=== PATIENT | female | born 1960 | race Caucasian/White ===

== ENCOUNTER → 2017-10-03 08:11 | Outpatient (CLI) | payer OTHER, SELFPAY ==
--- NOTE | 2017-10-03 | DI.MG.S_ITS ---
BILATERAL DIGITAL SCREENING MAMMOGRAM 3D/2D WITH CAD: 10/03/2017 CLINICAL: Routine screening. Comparison is made to exams dated: 06/26/2016 mammogram, 05/26/2015 mammogram, and 04/06/2013 mammogram - [facility]. There are scattered fibroglandular elements in both breasts. Current study was also evaluated with a Computer Aided Detection (CAD) system. No significant masses, calcifications, or other findings are seen in either breast. There has been no significant interval change. IMPRESSION: NEGATIVE There is no mammographic evidence of malignancy. A 1 year screening mammogram is recommended. This exam was interpreted at Station ID: [id number]. NOTE: For mammograms, a report in lay terms will be sent to the patient. Approximately 15% of breast malignancies will not be visualized mammographically. In the management of a palpable breast mass, a negative mammogram must not discourage biopsy of a clinically suspicious lesion. Electronically Signed By: Juan Luis jimenez/lauren:10/03/2017 11:57:15 letter sent: Normal Exam ACR BI-RADS Category 1: Negative 3341F
== END ==
PROVIDERS: Family Provider Physician Assistant; PCP Physician Assistant; Visit Provider Physician Assistant
DX: Z12.31 Encounter for screening mammogram for malignant neoplasm of breast (principal)
CPT/HCPCS: 77063; 77067

== ENCOUNTER → 2017-10-24 09:24 | Outpatient (CLI) | payer OTHER, SELFPAY ==
[2017-10-24 10:23] LABS: Hematocrit 38.8 % (36-46); Hemoglobin 12.8 g/dL (12.0-16.0)
== END ==
PROVIDERS: PCP Physician Assistant; Visit Provider Physician Assistant
DX: D50.0 Iron deficiency anemia secondary to blood loss (chronic) (principal); K51.90 Ulcerative colitis, unspecified, without complications
CPT/HCPCS: 36415; 85014; 85018

== ENCOUNTER → 2017-12-22 07:39 | Outpatient (CLI) | payer OTHER, SELFPAY ==
[2017-12-22 09:12] LABS: Hemoglobin 12.9 g/dL (12.0-16.0)
[2017-12-22 09:57] LABS: HEMOLYSIS < 15 (0-50); Iron 84 ug/dL (37-170)
[2017-12-22 10:09] LABS: Percent Iron Saturation 23 % (15-50); Total Iron Binding Capacity 360 ug/dL (265-497); Transferrin 301 mg/dL (206-381)
[2017-12-22 10:12] LABS: Ferritin 21.1 ng/mL (11.1-264)
== END ==
PROVIDERS: Family Provider Physician Assistant; PCP Physician Assistant; Visit Provider Physician Assistant
DX: D50.0 Iron deficiency anemia secondary to blood loss (chronic) (principal); K51.90 Ulcerative colitis, unspecified, without complications
CPT/HCPCS: 36415; 82728; 83540; 83550; 85014; 85018

== ENCOUNTER → 2018-02-17 08:00 | Outpatient (CLI) | payer OTHER, SELFPAY | PROVIDERS: Family Provider Physician Assistant; PCP Physician Assistant | DX: Z23 Encounter for immunization (principal) | CPT/HCPCS: 90471; 90686 ==

== ENCOUNTER → 2018-03-13 08:01 | Outpatient (CLI) | payer OTHER, SELFPAY ==
[2018-03-13 10:44] LABS: BUN Creatinine Ratio 25.7 (6-22); Blood Urea Nitrogen 18 mg/dL (7-17); Calcium 9.6 mg/dL (8.4-10.2); Carbon Dioxide 27 mmol/L (22-32); Chloride 99 mmol/L (98-107); Estimated Glomerular Filt Rate > 60.0 mL/min (>60); Glucose 107 mg/dL (70-100); HEMOLYSIS < 15 (0-50); Potassium 3.6 mmol/L (3.4-5.1); Sodium 142 mmol/L (137-145)
== END ==
PROVIDERS: Family Provider Physician Assistant; PCP Physician Assistant; Visit Provider Physician Assistant
DX: E78.5 Hyperlipidemia, unspecified (principal); I10 Essential (primary) hypertension
CPT/HCPCS: 36415; 80048

== ENCOUNTER → 2018-10-06 11:59 | Outpatient (CLI) | payer OTHER, SELFPAY ==
[2018-10-06 12:52] LABS: Add Manual Diff / Slide Review NO; Basophils Absolute Auto 100 /uL (0-100); Eosinophils Absolute Auto 200 /uL (0-450); Eosinophils Percent Auto 3.7 % (2-4); Hematocrit 39.2 % (36-46); Hemoglobin 12.7 g/dL (12.0-16.0); Lymphocytes Absolute Auto 1600 /uL (1100-4500); Lymphocytes Percent Auto 25.5 % (25-40); Mean Corpuscular HGB Conc 32.6 % (30-36); Mean Corpuscular Hemoglobin 30.6 PG (26-34); Monocytes Absolute Auto 400 /uL (0-900); Neutrophils Absolute Auto 4000 /uL (1500-7000); Neutrophils Percent Auto 62.8 % (50-75); Platelet Count 291 X10^3/uL (150-400); Red Blood Cell Count 4.16 X10^6/uL (4.0-5.2); Red Cell Distribution Width 14.8 % (11.6-14.8); White Blood Cell Count 6.4 X10^3/uL (4.5-11.0)
[2018-10-06 13:47] LABS: HEMOLYSIS < 15 (0-50); Iron 80 ug/dL (37-170)
[2018-10-06 13:55] LABS: Alanine Aminotransferase 35 IU/L (9-52); Albumin 4.3 g/dL (3.5-5.0); Albumin Globulin Ratio 1.2 (1.0-2.8); Alkaline Phosphatase 84 U/L (38-126); Aspartate Aminotransferase 42 IU/L (14-36); Bilirubin Total 0.5 mg/dL (0.2-1.3); Blood Urea Nitrogen 14 mg/dL (7-17); Calcium 9.8 mg/dL (8.4-10.2); Carbon Dioxide 32 mmol/L (22-32); Chloride 99 mmol/L (98-107); Cholesterol 203 mg/dL (140-199); Estimated Glomerular Filt Rate > 60.0 mL/min (>60); Globulin 3.5 g/dL (1.7-4.1); Glucose 105 mg/dL (70-100); HDL Cholesterol 67 mg/dL (40-60); HEMOLYSIS < 15 (0-50); LDL Cholesterol Calculated 120 mg/dL (<100); Potassium 3.4 mmol/L (3.4-5.1); Sodium 139 mmol/L (137-145); Total Protein 7.8 g/dL (6.3-8.2); Triglycerides 79 mg/dL (35-150)
[2018-10-06 13:58] LABS: Percent Iron Saturation 24 % (15-50); Total Iron Binding Capacity 334 ug/dL (265-497); Transferrin 271 mg/dL (206-381)
[2018-10-06 14:30] LABS: Ferritin 36.1 ng/mL (11.1-264)
[2018-10-06 15:09] LABS: Creatinine Urine Random 81.2 mg/dL
[2018-10-06 15:18] LABS: Microalbumi Creatinin Ratio Ur 7.3 ug/mg CR (<30); Microalbumin Urine Random < 0.6 mg/dL (0-1.6)
== END ==
PROVIDERS: PCP Physician Assistant; Visit Provider Physician Assistant
DX: E78.5 Hyperlipidemia, unspecified (principal); I10 Essential (primary) hypertension; D50.0 Iron deficiency anemia secondary to blood loss (chronic); K51.90 Ulcerative colitis, unspecified, without complications
CPT/HCPCS: 80053; 80061; 82043; 82570; 82728; 83540; 83550; 85025

== ENCOUNTER → 2018-12-02 10:07 | Outpatient (CLI) | payer OTHER, SELFPAY ==
--- NOTE | 2018-12-02 10:08 | DI.MG.S_ITS ---
BILATERAL DIGITAL SCREENING MAMMOGRAM 3D/2D WITH CAD: 12/02/2018 CLINICAL: Routine screening. Comparison is made to exams dated: 10/03/2017 mammogram, 06/26/2016 mammogram, and 05/26/2015 mammogram - [facility]. There are scattered fibroglandular elements in both breasts. Current study was also evaluated with a Computer Aided Detection (CAD) system. There are benign calcifications in both breasts. No significant masses, calcifications, or other findings are seen in either breast. There has been no significant interval change. IMPRESSION: There is no mammographic evidence of malignancy. A 1 year screening mammogram is recommended. This exam was interpreted at Station ID: [id number]. NOTE: For mammograms, a report in lay terms will be sent to the patient. Approximately 15% of breast malignancies will not be visualized mammographically. In the management of a palpable breast mass, a negative mammogram must not discourage biopsy of a clinically suspicious lesion. Electronically Signed By: Fabian devries/lauren:12/03/2018 07:43:31 letter sent: Normal Exam ACR BI-RADS Category 2: Benign Finding(s) 3342F
== END ==
PROVIDERS: PCP Physician Assistant; Visit Provider Physician Assistant
DX: Z12.31 Encounter for screening mammogram for malignant neoplasm of breast (principal)
CPT/HCPCS: 77063; 77067

== ENCOUNTER → 2019-02-09 13:28 | Outpatient (CLI) | payer OTHER, SELFPAY | PROVIDERS: PCP Physician Assistant | DX: Z23 Encounter for immunization (principal) | CPT/HCPCS: 90471; 90686 ==

== ENCOUNTER → 2019-06-01 07:57 | Outpatient (CLI) | payer OTHER, SELFPAY ==
[2019-06-01 08:21] LABS: Add Manual Diff / Slide Review NO; Basophils Absolute Auto 100 /uL (0-100); Basophils Percent Auto 1.3 % (0-2); Eosinophils Absolute Auto 200 /uL (0-450); Eosinophils Percent Auto 3.6 % (2-4); Hematocrit 39.4 % (36-46); Hemoglobin 13.4 g/dL (12.0-16.0); Lymphocytes Absolute Auto 1200 /uL (1100-4500); Lymphocytes Percent Auto 19.3 % (25-40); Mean Corpuscular HGB Conc 33.9 % (30-36); Mean Corpuscular Hemoglobin 31.8 PG (26-34); Mean Corpuscular Volume 93.9 fL (80-100); Monocytes Absolute Auto 500 /uL (0-900); Monocytes Percent Auto 8.6 % (3-14); Neutrophils Absolute Auto 4100 /uL (1500-7000); Neutrophils Percent Auto 67.2 % (50-75); Platelet Count 280 X10^3/uL (150-400); Red Blood Cell Count 4.19 X10^6/uL (4.0-5.2); Red Cell Distribution Width 15.1 % (11.6-14.8); White Blood Cell Count 6.2 X10^3/uL (4.5-11.0)
[2019-06-01 08:50] LABS: Alanine Aminotransferase 32 IU/L (<35); Albumin 4.7 g/dL (3.5-5.0); Albumin Globulin Ratio 1.3 (1.0-2.8); Alkaline Phosphatase 85 U/L (38-126); Aspartate Aminotransferase 36 IU/L (14-36); BUN Creatinine Ratio 27.1 (6-22); Bilirubin Total 0.7 mg/dL (0.2-1.3); Blood Urea Nitrogen 19 mg/dL (7-17); Calcium 10.1 mg/dL (8.4-10.2); Carbon Dioxide 28 mmol/L (22-32); Chloride 99 mmol/L (98-107); Cholesterol 210 mg/dL (140-199); Estimated Glomerular Filt Rate > 60.0 mL/min (>60); Globulin 3.5 g/dL (1.7-4.1); Glucose 119 mg/dL (70-100); HDL Cholesterol 82 mg/dL (40-60); HEMOLYSIS < 15 (0-50); Iron 117 ug/dL (37-170); LDL Cholesterol Calculated 109 mg/dL (<100); Potassium 3.8 mmol/L (3.4-5.1); Sodium 139 mmol/L (137-145); Total Protein 8.2 g/dL (6.3-8.2); Triglycerides 96 mg/dL (35-150)
[2019-06-01 09:20] LABS: Creatinine Urine Random 14.2 mg/dL
[2019-06-01 09:25] LABS: Microalbumi Creatinin Ratio Ur 42.2 ug/mg CR (<30); Microalbumin Urine Random < 0.6 mg/dL (0-1.6)
== END ==
PROVIDERS: PCP Physician Assistant; Referring Provider Physician Assistant; Visit Provider Physician Assistant
DX: D50.0 Iron deficiency anemia secondary to blood loss (chronic) (principal); K51.90 Ulcerative colitis, unspecified, without complications; E78.5 Hyperlipidemia, unspecified; I10 Essential (primary) hypertension
CPT/HCPCS: 36415; 80053; 80061; 82043; 82570; 83540; 85025

== ENCOUNTER → 2019-11-23 07:23 | Outpatient (CLI) | payer OTHER, SELFPAY ==
[2019-11-23 08:47] LABS: Hemoglobin A1C% w Est Avg Glu 5.4 % (4.0-6.0)
[2019-11-23 08:57] LABS: Cholesterol 202 mg/dL (140-199); Glucose 117 mg/dL (70-100); HDL Cholesterol 86 mg/dL (40-60); LDL Cholesterol Calculated 96 mg/dL (<100); Triglycerides 100 mg/dL (35-150)
[2019-11-23 09:12] LABS: Free T3, Triiodothyronine Free 3.03 pg/mL (2.77-5.27); Free T4, Direct Thyroxine 1.11 ng/dL (0.78-2.19)
[2019-11-23 09:26] LABS: Thyroid Stimulating Hormone 2.25 uIU/mL (0.47-4.68)
== END ==
PROVIDERS: PCP Nurse Practitioner; Referring Provider Nurse Practitioner; Visit Provider Nurse Practitioner
DX: E66.01 Morbid (severe) obesity due to excess calories (principal); E78.5 Hyperlipidemia, unspecified; F32.9 Major depressive disorder, single episode, unspecified; R73.01 Impaired fasting glucose; Z68.42 Body mass index [BMI] 45.0-49.9, adult
CPT/HCPCS: 36415; 80061; 82947; 83036; 84439; 84443; 84481

== ENCOUNTER → 2020-01-08 09:29 | Outpatient (CLI) | payer OTHER, SELFPAY ==
--- NOTE | 2020-01-08 09:46 | DI.MG.S_ITS ---
Patient Name: ARMANDO CARBALLO date: 1960 Sex: F Attending Physician: Levy Indications: Date: 01/08/2020 09:51 At the request of: CORY LOPEZ Procedure: MM screening mammo BI BILATERAL DIGITAL SCREENING MAMMOGRAM 3D/2D WITH CAD: 01/08/2020 CLINICAL: Routine screening. Comparison is made to exams dated: 12/02/2018 mammogram, 10/03/2017 mammogram, and 06/26/2016 mammogram - [facility]. There are scattered fibroglandular elements in both breasts. Current study was also evaluated with a Computer Aided Detection (CAD) system. There are benign calcifications in both breasts. No significant masses, calcifications, or other findings are seen in either breast. There has been no significant interval change. IMPRESSION: BENIGN There is no mammographic evidence of malignancy. A 1 year screening mammogram is recommended. This exam was interpreted at Station ID: [id number]. NOTE: For mammograms, a report in lay terms will be sent to the patient. Approximately 15% of breast malignancies will not be visualized mammographically. In the management of a palpable breast mass, a negative mammogram must not discourage biopsy of a clinically suspicious lesion. Electronically Signed By: Daisy villegas/lauren:01/10/2020 08:16:25 letter sent: Normal Exam ACR BI-RADS Category 2: Benign Finding(s) 3342F
== END ==
PROVIDERS: PCP Nurse Practitioner; Referring Provider Nurse Practitioner; Visit Provider Nurse Practitioner
DX: Z12.31 Encounter for screening mammogram for malignant neoplasm of breast (principal)
CPT/HCPCS: 77063; 77067

== ENCOUNTER → 2020-03-07 | Outpatient (CLI) | payer OTHER, SELFPAY | PROVIDERS: Referring Provider Internal Medicine; Visit Provider Internal Medicine | DX: Z23 Encounter for immunization (principal) | CPT/HCPCS: 90471; 90686 ==

== ENCOUNTER → 2020-05-03 13:07 | Outpatient (CLI) | payer OTHER, SELFPAY ==
[2020-05-03] MEDS: COVID-19 VACC(MODERNA-1)/PF 100 MCG/0.5 ML VIAL IM (13:12)
== END ==
PROVIDERS: PCP Nurse Practitioner; Visit Provider Internal Medicine
DX: Z23 Encounter for immunization (principal)
CPT/HCPCS: 0011A; 91301

== ENCOUNTER → 2020-06-02 13:46 | Outpatient (CLI) | payer OTHER, SELFPAY ==
[2020-06-02] MEDS: COVID-19 VACC #2, MRNA(MOD) 100 MCG/0.5 ML VIAL IM (13:50)
== END ==
PROVIDERS: PCP Nurse Practitioner; Visit Provider Internal Medicine
DX: Z23 Encounter for immunization (principal)
CPT/HCPCS: 0012A; 91301

== ENCOUNTER → 2020-07-22 08:04 | Outpatient (CLI) | payer OTHER, SELFPAY ==
[2020-07-22 09:35] LABS: Hemoglobin A1C% w Est Avg Glu 5.5 % (4.0-6.0)
[2020-07-22 09:44] LABS: Alanine Aminotransferase 24 IU/L (<35); Albumin 4.4 g/dL (3.5-5.0); Albumin Globulin Ratio 1.2 (1.0-2.8); Alkaline Phosphatase 80 U/L (38-126); Aspartate Aminotransferase 28 IU/L (14-36); BUN Creatinine Ratio 26.5 (6-22); Bilirubin Total 0.4 mg/dL (0.2-1.3); Blood Urea Nitrogen 18 mg/dL (7-17); Calcium 9.8 mg/dL (8.4-10.2); Carbon Dioxide 30 mmol/L (22-32); Chloride 103 mmol/L (98-107); Cholesterol 217 mg/dL (140-199); Estimated Glomerular Filt Rate > 60.0 mL/min (>60); Globulin 3.7 g/dL (1.7-4.1); Glucose 107 mg/dL (70-100); HDL Cholesterol 82 mg/dL (40-60); HEMOLYSIS < 15 (0-50); LDL Cholesterol Calculated 117 mg/dL (<100); Potassium 3.5 mmol/L (3.4-5.1); Sodium 141 mmol/L (137-145); Total Protein 8.1 g/dL (6.3-8.2); Triglycerides 92 mg/dL (35-150)
[2020-07-22 10:11] LABS: Creatinine Urine Random 124.6 mg/dL
[2020-07-22 10:25] LABS: Free T3, Triiodothyronine Free 2.92 pg/mL (2.77-5.27); Free T4, Direct Thyroxine 0.98 ng/dL (0.78-2.19)
[2020-07-22 10:26] LABS: Microalbumin Urine Random < 0.6 mg/dL (0-1.6)
== END ==
PROVIDERS: PCP Nurse Practitioner; Referring Provider Nurse Practitioner; Visit Provider Nurse Practitioner
DX: E66.01 Morbid (severe) obesity due to excess calories (principal); E78.5 Hyperlipidemia, unspecified; F32.9 Major depressive disorder, single episode, unspecified; I10 Essential (primary) hypertension; R73.01 Impaired fasting glucose; Z68.42 Body mass index [BMI] 45.0-49.9, adult; Z79.899 Other long term (current) drug therapy
CPT/HCPCS: 36415; 80053; 80061; 82043; 82570; 83036; 84439; 84443; 84481

== ENCOUNTER → 2020-10-02 08:00 | Outpatient (CLI) | payer OTHER, SELFPAY ==
[2020-10-02 12:04] LABS: COVID19 -Nasal RAPID Negative (Negative)
== END ==
PROVIDERS: PCP Nurse Practitioner; Visit Provider Physician Assistant
DX: Z01.812 Encounter for preprocedural laboratory examination (principal); Z20.822 Contact with and (suspected) exposure to COVID-19
CPT/HCPCS: 87635

== ENCOUNTER 2020-10-04 10:20 | Day surgery (SDC) | payer OTHER, SELFPAY ==
[2020-10-04] VITALS (7 sets, daily range): BP systolic 117–137; BP diastolic 72–82; PULSE 63–88; RESP 13–18; TEMP 36.4–37.1; O2SAT 92–98; BMI 43.9
--- NOTE | 2020-10-04 | PATH_ITS ---
[facility] Accession Number: [id number] . 01 Material submitted: . PART A: colon - RIGHT COLON BIOPSY PART B: colon - TRANSVERSE COLON BIOPSY PART C: colon - LEFT COLON BIOPSY PART D: sigmoid colon - SIGMOID COLON BIOPSY . 02 Diagnosis: A. Right Colon Biopsy: Colonic mucosa with no significant diagnostic abnormality. Negative for active inflammation, granulomas, dysplasia, and malignancy. . B. Transverse Colon Biopsy: Colonic mucosa with no significant diagnostic abnormality. Negative for active inflammation, granulomas, dysplasia, and malignancy. . C. Left Colon Biopsy: Minimal active inflammation and minimal crypt architectural distortion. Negative for granulomas, dysplasia, and malignancy. . D. Sigmoid Colon Biopsy: Colonic mucosa with no significant diagnostic abnormality. Negative for active inflammation, granulomas, dysplasia, and malignancy. [facility] 10/09/2020 1115 Local . 02 Electronically signed: . Santa Alvarez MD, Pathologist NPI- [id number] . 01 Gross description: . Part A: RIGHT COLON BIOPSY: Received in formalin are multiple fragment(s) of ann, soft tissue measuring 1.0 x 0.5 x 0.1 cm in aggregate submitted entirely in 1 cassette(s) Part B: TRANSVERSE COLON BIOPSY: Received in formalin are multiple fragment(s) of ann, soft tissue measuring 1.0 x 0.8 x 0.1 cm in aggregate submitted entirely in 1 cassette(s) Part C: LEFT COLON BIOPSY: Received in formalin are multiple fragment(s) of ann, soft tissue measuring 1.6 x 0.9 x 0.1 cm in aggregate submitted entirely in 1 cassette(s) Part D: SIGMOID COLON BIOPSY: Received in formalin are multiple fragment(s) of ann, soft tissue measuring 1.1 x 0.4 x 0.1 cm in aggregate submitted entirely in 1 cassette(s) /KAN 10/05/2020 1003 Local . 02 Pathologist provided ICD-10: K51.90 . 02 CPT . 352116, 868605, 130119, [id number] Performed at: 01 [facility] [address] [id number] MD Francis Souza MD Phone: [phone] Performed at: 02 [facility] [address] [place] [id number] MD Miranda Curiel MD Phone: [phone]
[2020-10-04] MEDS: SODIUM CHLORIDE 0.9% 1,000 ML 84 ML IV (10:40)
--- NOTE | 2020-10-04 11:23 | PM.HP.1 ---
History of Present Illness History of Present Illness Date Patient Seen: 10/04/20 Chief complaint: SDC Narrative: History of ulcerative colitis need for surveillance Patient History Medical History (Updated 10/03/20 @ 15:02 by Elisabeth Lockett RN) Breast cancer screening Colitis Essential hypertension Heartburn Hyperlipidemia (06/13/11) Hyperlipidemia Hypertension Morbid obesity with BMI of 45.0-49.9, adult Obesity Psoriasis Family & Social History Social History: household members spouse Tobacco & Substance use: Smoking Status Former smoker alcohol intake current alcohol intake frequency 0-2 drinks per day Substance Use Type does not use Meds Home Medications and Allergies Home Medications Medication Instructions Recorded Confirmed Type iron polysacch cplx 150 mg 1 cap PO DAILY #90 cap 12/27/19 10/04/20 Rx iron-vit B12 25 mcg-folic acid 1 mg capsule amlodipine 5 mg tablet 10 mg PO DAILY #180 tab 07/25/20 10/04/20 Rx atorvastatin 40 mg tablet 40 mg PO HS #90 tab 07/25/20 10/04/20 Rx hydrochlorothiazide 50 mg tablet 50 mg PO DAILY #90 tab 07/25/20 10/04/20 Rx labetalol 100 mg tablet 100 mg PO BID #180 tab 07/25/20 10/04/20 Rx losartan 100 mg tablet 100 mg PO DAILY #90 tab 07/25/20 10/04/20 Rx sulfasalazine 500 mg PO BID 10/03/20 10/04/20 History Allergies Allergy/AdvReac Type Severity Reaction Status Date / Time atenolol Allergy Intermediate HIVES Verified 10/04/20 10:35 lisinopril AdvReac Mild COUGH Verified 10/04/20 10:35 Exam Vital Signs (past 8 hours): - 10/04/20 10:44 Temperature 97.9 F Pulse Rate 63 Respiratory Rate 18 Blood Pressure 135/82 Pulse Oximetry 97 Oxygen Delivery Method Room Air Narrative Exam Narrative: Oropharynx free of lesions Chest clear to auscultation percussion Cardiac exam reveals no S3 or murmur Assessment & Plan Assessment & Plan narrative: History of ulcerative colitis need for surveillance colonoscopy with biopsy. Risks, benefits, alternatives have been explained.
--- NOTE | 2020-10-04 11:24 | PM.OP.ENDO ---
Operative Date/Time/Diagnoses Date of procedure: 10/04/20 Pre-op diagnosis: See indication and findings Procedure & Clinicians Study performed: Colonoscopy Same procedure as scheduled: Yes Indications: Ulcerative colitis need for colonoscopy and biopsy Surgeon: Hong Harvey Procedure Notes Procedure in detail: After informed consent was obtained patient was placed in left lateral decubitus position. The video colonoscope was introduced in the rectum slowly advanced to cecum. Preparation was excellent. On slow withdrawal mucosa was carefully examined. The the scope was removed. The patient tolerated procedure well. Blood loss none Complications none Sedation Total sedation time 13 minutes Versed 7 mg fentanyl 150 mg IV titration Findings 1. Entire colon with generally normal mucosa with the exception of the sigmoid colon. This showed [id number] evidence of ulcerative colitis with inflammation loss of vascular pattern and aphthous ulceration. This was only about a 10-15 cm long segment. Biopsies were taken to 2-4 every 10 cm and placed in bottles labeled right colon, transverse, left colon, and sigmoid. Follow-up colonoscopy should be in 2 years will be in touch by mail regarding the results for biopsies.
[2020-10-04] MEDS: fentaNYL 250 MCG/5 ML INJ IV (11:58)
[2020-10-04] MEDS: MIDAZOLAM 5 MG/5 ML VIAL IV (12:04)
== END 2020-10-04 12:59 | disposition home or self-care (01) ==
PROVIDERS: PCP Nurse Practitioner; Referring Provider Internal Medicine Gastroenterology; Visit Provider Internal Medicine Gastroenterology
PROC: 0DJD8ZZ Inspection of Lower Intestinal Tract, Via Natural or Artificial Opening Endoscopic (ICD-10-PCS; CPT 45378; principal; 2020-10-04 11:30)
DX: K51.90 Ulcerative colitis, unspecified, without complications (principal); I10 Essential (primary) hypertension; E78.5 Hyperlipidemia, unspecified; E66.9 Obesity, unspecified; K21.9 Gastro-esophageal reflux disease without esophagitis
CPT/HCPCS: 45380; J2250; J3010

== ENCOUNTER → 2021-03-02 12:34 | Outpatient (CLI) | payer OTHER, SELFPAY ==
[2021-03-02] MEDS: COVID-19 VACC #3, MRNA(MOD) 50 MCG/0.25 ML VIAL IM (12:37)
== END ==
PROVIDERS: PCP Nurse Practitioner; Visit Provider Internal Medicine
DX: Z23 Encounter for immunization (principal)
CPT/HCPCS: 0013A; 91301

== ENCOUNTER → 2021-03-15 13:54 | Outpatient (CLI) | payer OTHER, SELFPAY | PROVIDERS: PCP Nurse Practitioner; Referring Provider Internal Medicine; Visit Provider Internal Medicine | DX: Z23 Encounter for immunization (principal) | CPT/HCPCS: 90471; 90686 ==

== ENCOUNTER → 2021-03-20 12:05 | Outpatient (CLI) | payer OTHER, SELFPAY ==
--- NOTE | 2021-03-20 | DI.MG.S_ITS ---
BILATERAL DIGITAL SCREENING MAMMOGRAM 3D/2D WITH CAD: 03/20/2021 CLINICAL: Routine screening. Comparison is made to exams dated: 01/08/2020 mammogram, 12/02/2018 mammogram, and 10/03/2017 mammogram - [facility]. There are scattered fibroglandular elements in both breasts. Current study was also evaluated with a Computer Aided Detection (CAD) system. There are benign calcifications in both breasts. No significant masses, calcifications, or other findings are seen in either breast. There has been no significant interval change. IMPRESSION: BENIGN There is no mammographic evidence of malignancy. A 1 year screening mammogram is recommended. This exam was interpreted at Station ID: [id number]. NOTE: For mammograms, a report in lay terms will be sent to the patient. Approximately 15% of breast malignancies will not be visualized mammographically. In the management of a palpable breast mass, a negative mammogram must not discourage biopsy of a clinically suspicious lesion. Electronically Signed By: Marilou vera/lauren:03/20/2021 12:51:56 letter sent: Normal Exam ACR BI-RADS Category 2: Benign Finding(s) 3342F
== END ==
PROVIDERS: PCP Nurse Practitioner; Referring Provider Nurse Practitioner; Visit Provider Nurse Practitioner
DX: Z12.31 Encounter for screening mammogram for malignant neoplasm of breast (principal)
CPT/HCPCS: 77063; 77067

== ENCOUNTER 2021-04-12 07:30 | Outpatient (RCR) | payer OTHER, SELFPAY ==
--- NOTE | 2021-03-27 16:01 | PT.OIE ---
Current Diagnoses Other specified mononeuropathies of right upper limb (03/27/21) Pain in right shoulder (03/27/21) Past Medical History (Last Reviewed 03/12/21 @ 14:26 by RADHA Butler) Breast cancer screening Colitis Essential hypertension Heartburn Hyperlipidemia (06/13/11) Hyperlipidemia Hypertension Morbid obesity with BMI of 45.0-49.9, adult Obesity Psoriasis Visit Care Team Role Provider Type RADHA Butler Attending Provider Advanced Electric Blanket Packer Family Provider Primary Care Provider Referring Provider Specialty: [facility] Practice Address: [address] [place] [address] Email: [email or web address] Physical Therapy Initial Evaluation PT-OP-A Visit Information Start: 03/27/21 09:43 Freq: Status: Active Protocol: Document 03/27/21 11:15 AMB (Rec: 03/28/21 13:16 AMB [email or web address]) Out-Patient Physical Therapy Visit Information Visit Information Visit Type Initial Evaluation Visit Start Time 11:15 Visit Stop Time 12:00 Total Visit Minutes 45 Visit Number 1 PT-OP-B Current Condition Start: 03/27/21 09:43 Freq: Status: Active Protocol: Document 03/27/21 11:14 AMB (Rec: 03/27/21 11:23 AMB [id number]) Current Condition History of Current Condition Onset Date 5 weeks ago Current Complaints shoulder History of Current Condition Reaching R shoulder up, across or behind has been painful. Insidious onset, getting better, but still painful. Sharp pain in the front of the shoulder and into the shoulder blade when moving, but doesn't hurt at rest. 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 Treatment Goals Patient/Caregiver Goals Reduce pain with reaching up, across and behind Prior Functional Status Baseline Function- ADL's Independent Baseline Function- Mobility Independent Current Functional Impairments (Reported) Functional Limitations- ADL's difficulty donning bra Personal Factors Other Personal Factors That May Effect none Therapy/Recovery PT-OP-C Subjective Start: 03/27/21 09:43 Freq: Status: Active Protocol: Document 03/27/21 11:15 AMB (Rec: 03/28/21 13:38 AMB [email or web address]) Patient Questionnaires Quick Dash- Upper Extremity Quick Dash UE Score 16 Quick Dash UE Impairment 1 to 19% Impaired (Score 1-19) PT-OP-J Posture/Palpation/Skin Start: 03/27/21 09:43 Freq: Status: Active Protocol: Document 03/27/21 11:15 AMB (Rec: 03/28/21 13:38 AMB [email or web address]) Posture Evaluation Comments Posture Comments forward shoulders Palpation Assessment Location One Palpation Location Right shoulder Palpation Findings Soft Tissue Tightness,Muscle Guarding,Tenderness Palpation Details scapular tension and tightness most in rhomboids and levator scap, some in subscap and infraspinatus PT-OP-K Range of Motion Start: 03/27/21 09:43 Freq: Status: Active Protocol: Document 03/27/21 11:23 AMB (Rec: 03/27/21 11:30 AMB [id number]) Shoulder Goniometric Range of Motion Shoulder Right Passive Testing Position Supine Flexion 120 Abduction 95 External Rotation at 45 degrees 45 Abduction Right Active Testing Position Supine PT-OP-M Strength Start: 03/27/21 09:43 Freq: Status: Active Protocol: Document 03/27/21 11:15 AMB (Rec: 03/28/21 13:39 AMB [email or web address]) Shoulder Strength Shoulder Manual Muscle Testing Right Flexion 4 Good Extension 4- Good- Abduction (C5) 4- Good- External Rotation 4- Good- Internal Rotation 4- Good- PT-OP-Q Treatments Start: 03/27/21 09:43 Freq: Status: Active Protocol: Document 03/27/21 11:15 AMB (Rec: 03/28/21 13:38 AMB [email or web address]) Therapeutic Exercises Standing Exercises 3 Standing Exercise Name wall walk forward Reps/Minutes 4 Comments forward 2 Standing Exercise Name cross body stretch Reps/Minutes 30x2 1 Standing Exercise Name scapular retractions Reps/Minutes 10 PT-OP-T Assessment and Plan Start: 03/27/21 09:43 Freq: Status: Active Protocol: Document 03/27/21 11:15 AMB (Rec: 03/28/21 13:45 AMB [email or web address]) Physical Therapy Assessment Rehab Potential Rehabilitation Potential Good Evaluation Complexity Number of Personal Factors/Comorbidities 0 Number of Body Systems Impaired 4 or More Clinical Presentation at Evaluation Stable Impairments Impairments Functional Activities,Pain, Posture,ROM,Strength Goals Two Impairment ROM Short Term Goal (STG) [place] will improve her passive shoulder flexion to 150 degrees without an increase in pain. STG Duration 4 weeks Penitentiary Goal (LTG) [place] will improve her active shoulder flexion so that she can put dishes away in a tall cabinet without pain. LTG Duration 8 weeks One Impairment Pain Short Term Goal (STG) [place] will sleep on her right shoulder without being woken secondary to pain. STG Duration 4 weeks Penitentiary Goal (LTG) [place] will perform all upper body dressing without an increase in baseline shoulder pain. LTG Duration 8 weeks Assessment Summary Assessment [place] attends physical therapy with restricted shoulder ROM and tenderness and tightness throughout her scapula. Fortunately her strength is reasonably well maintained. She will benefit from physical therapy to improve her range of motion and decrease her scapular pain so that she is better able to move her scapula and return to her previous activities without pain (reaching, twisting arm to dress, clean, etc.) Physical Therapy Plan Frequency and Duration Frequency of Treatment 2x/Week Duration of Treatment 8 weeks Plan of Care Start Date 03/27/21 Plan of Care End Date 05/22/21 Therapeutic Interventions Therapeutic Interventions Home Exercise Program,Joint Mobilizations,Manual Therapy, Neuromuscular Re-education, Self-Care/Home Management,Soft Tissue Mobilization, Therapeutic Activities, Therapeutic Exercises Modalities Cold Pack/Ice Massage,Electric Stimulation,Hot Packs Next Visit Focus/Plan Next Note Type Treatment Note Next Visit Plan Began with HEP of scap retractions, cross body stretch and wall walk, follow up on tolerance
--- NOTE | 2021-03-27 16:01 | PT.OPPOC ---
Physical, Occupational & Speech Therapy At [facility] Current Diagnoses Other specified mononeuropathies of right upper limb (03/27/21) Pain in right shoulder (03/27/21) Visit Care Team Role Provider Type RADHA Butler Attending Provider Advanced Clean Out Driller Helper Family Provider Primary Care Provider Referring Provider Specialty: Family Practice Address: [address] [place] [address], [facility] Email: [email or web address] Plan Of Care PT-OP-T Assessment and Plan Start: 03/27/21 09:43 Freq: Status: Active Protocol: Document 03/27/21 11:15 AMB (Rec: 03/28/21 13:45 AMB [email or web address]) Physical Therapy Assessment Rehab Potential Rehabilitation Potential Good Evaluation Complexity Number of Personal Factors/Comorbidities 0 Number of Body Systems Impaired 4 or More Clinical Presentation at Evaluation Stable Impairments Impairments Functional Activities,Pain, Posture,ROM,Strength Goals Two Impairment ROM Short Term Goal (STG) [place] will improve her passive shoulder flexion to 150 degrees without an increase in pain. STG Duration 4 weeks City Councilman Goal (LTG) [place] will improve her active shoulder flexion so that she can put dishes away in a tall cabinet without pain. LTG Duration 8 weeks One Impairment Pain Short Term Goal (STG) [place] will sleep on her right shoulder without being woken secondary to pain. STG Duration 4 weeks [facility]pc Goal (LTG) [place] will perform all upper body dressing without an increase in baseline shoulder pain. LTG Duration 8 weeks Assessment Summary Assessment [place] attends physical therapy with restricted shoulder ROM and tenderness and tightness throughout her scapula. Fortunately her strength is reasonably well maintained. She will benefit from physical therapy to improve her range of motion and decrease her scapular pain so that she is better able to move her scapula and return to her previous activities without pain (reaching, twisting arm to dress, clean, etc.) Physical Therapy Plan Frequency and Duration Frequency of Treatment 2x/Week Duration of Treatment 8 weeks Plan of Care Start Date 03/27/21 Plan of Care End Date 05/22/21 Therapeutic Interventions Therapeutic Interventions Home Exercise Program,Joint Mobilizations,Manual Therapy, Neuromuscular Re-education, Self-Care/Home Management,Soft Tissue Mobilization, Therapeutic Activities, Therapeutic Exercises Modalities Cold Pack/Ice Massage,Electric Stimulation,Hot Packs Next Visit Focus/Plan Next Note Type Treatment Note Next Visit Plan Began with HEP of scap retractions, cross body stretch and wall walk, follow up on tolerance Plan of Care Dates Plan of Care Start Date 03/27/21 Plan of Care End Date 05/22/21 Electronically Signed by: Joselin Grossman, PT 03/28/21 1796 Please Sign and Return: I have reviewed this Plan of Care and certify that the skilled therapy services above are required to meet the patient?s needs. Physician Signature Date Printed Name and Credentials Clinical Instructor Signature Printed Name and Credentials
--- NOTE | 2021-03-30 15:44 | PT.OTN ---
Current Diagnoses Other specified mononeuropathies of right upper limb (03/30/21) Pain in right shoulder (03/30/21) Physical Therapy Treatment Note PT-OP-A Visit Information Start: 03/27/21 09:43 Freq: Status: Active Protocol: Document 03/30/21 12:57 AMB (Rec: 03/30/21 13:15 AMB [id number]) Out-Patient Physical Therapy Visit Information Visit Information Visit Type Treatment Note Visit Start Time 13:00 Visit Stop Time 13:45 Total Visit Minutes 45 Visit Number 2 PT-OP-B Current Condition Start: 03/27/21 09:43 Freq: Status: Active Protocol: Document 03/27/21 11:14 AMB (Rec: 03/27/21 11:23 AMB [id number]) Current Condition History of Current Condition Onset Date 5 weeks ago Current Complaints shoulder History of Current Condition Reaching R shoulder up, across or behind has been painful. Insidious onset, getting better, but still painful. Sharp pain in the front of the shoulder and into the shoulder blade when moving, but doesn't hurt at rest. 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 Treatment Goals Patient/Caregiver Goals Reduce pain with reaching up, across and behind Prior Functional Status Baseline Function- ADL's Independent Baseline Function- Mobility Independent Current Functional Impairments (Reported) Functional Limitations- ADL's difficulty donning bra Personal Factors Other Personal Factors That May Effect none Therapy/Recovery PT-OP-C Subjective Start: 03/27/21 09:43 Freq: Status: Active Protocol: Document 03/30/21 12:57 AMB (Rec: 03/30/21 13:15 AMB [id number]) OP-PT Subjective Patient Comments Patient Comments Pt reports the mornings arethe most difficult, exercises are going well, but wall wallking is the most challenging. PT-OP-J Posture/Palpation/Skin Start: 03/27/21 09:43 Freq: Status: Active Protocol: Document 03/27/21 11:15 AMB (Rec: 03/28/21 13:38 AMB [email or web address]) Posture Evaluation Comments Posture Comments forward shoulders Palpation Assessment Location One Palpation Location Right shoulder Palpation Findings Soft Tissue Tightness,Muscle Guarding,Tenderness Palpation Details scapular tension and tightness most in rhomboids and levator scap, some in subscap and infraspinatus PT-OP-K Range of Motion Start: 03/27/21 09:43 Freq: Status: Active Protocol: Document 03/27/21 11:23 AMB (Rec: 03/27/21 11:30 AMB [id number]) Shoulder Goniometric Range of Motion Shoulder Right Passive Testing Position Supine Flexion 120 Abduction 95 External Rotation at 45 degrees 45 Abduction Right Active Testing Position Supine PT-OP-M Strength Start: 03/27/21 09:43 Freq: Status: Active Protocol: Document 03/27/21 11:15 AMB (Rec: 03/28/21 13:39 AMB [email or web address]) Shoulder Strength Shoulder Manual Muscle Testing Right Flexion 4 Good Extension 4- Good- Abduction (C5) 4- Good- External Rotation 4- Good- Internal Rotation 4- Good- PT-OP-Q Treatments Start: 03/27/21 09:43 Freq: Status: Active Protocol: Document 03/30/21 15:39 AMB (Rec: 03/30/21 15:44 AMB [id number]) Therapeutic Exercises Sidelying Exercises open book Reps/Minutes 10 Sitting Exercises memo Reps/Minutes 5 min Comments abd and flexion Standing Exercises band rows Resistance #3 Reps/Minutes 2x10 Comments cues for slow speed band IR Resistance #1 Reps/Minutes 2x10 Comments cue slow speed, elbow at side band ER Reps/Minutes #1, 2x10 Comments elbow at side 3 Standing Exercise Name wall walk forward Reps/Minutes 4 Comments forward Manual Therapy Treatment Soft Tissue Mobilization 1 Body Location infraspinatus, levator scap, rhomboids Intensity/Depth Moderate Body Position Sidelying PT-OP-T Assessment and Plan Start: 03/27/21 09:43 Freq: Status: Active Protocol: Document 03/30/21 15:39 AMB (Rec: 03/30/21 15:44 AMB [id number]) Physical Therapy Assessment Assessment Summary Assessment [place] did well with PT today, ROM is improving, but scapular pain continues Physical Therapy Plan Next Visit Focus/Plan Next Visit Plan Follwo up on sleeper stretch, open book, ER, IR band exercises
--- NOTE | 2021-04-03 15:38 | PT.OTN ---
Current Diagnoses Other specified mononeuropathies of right upper limb (04/03/21) Pain in right shoulder (04/03/21) Physical Therapy Treatment Note PT-OP-A Visit Information Start: 03/27/21 09:43 Freq: Status: Active Protocol: Document 04/03/21 07:31 AMB (Rec: 04/03/21 08:17 AMB [id number]) Out-Patient Physical Therapy Visit Information Visit Information Visit Type Treatment Note Visit Start Time 07:30 Visit Stop Time 08:15 Total Visit Minutes 45 Visit Number 3 PT-OP-B Current Condition Start: 03/27/21 09:43 Freq: Status: Active Protocol: Document 03/27/21 11:14 AMB (Rec: 03/27/21 11:23 AMB [id number]) Current Condition History of Current Condition Onset Date 5 weeks ago Current Complaints shoulder History of Current Condition Reaching R shoulder up, across or behind has been painful. Insidious onset, getting better, but still painful. Sharp pain in the front of the shoulder and into the shoulder blade when moving, but doesn't hurt at rest. 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 Treatment Goals Patient/Caregiver Goals Reduce pain with reaching up, across and behind Prior Functional Status Baseline Function- ADL's Independent Baseline Function- Mobility Independent Current Functional Impairments (Reported) Functional Limitations- ADL's difficulty donning bra Personal Factors Other Personal Factors That May Effect none Therapy/Recovery PT-OP-C Subjective Start: 03/27/21 09:43 Freq: Status: Active Protocol: Document 04/03/21 07:31 AMB (Rec: 04/03/21 08:17 AMB [id number]) OP-PT Subjective Patient Comments Patient Comments Pt feels like things are going well. Could wash her hair with the affected arm this morning. PT-OP-J Posture/Palpation/Skin Start: 03/27/21 09:43 Freq: Status: Active Protocol: Document 03/27/21 11:15 AMB (Rec: 03/28/21 13:38 AMB [email or web address]) Posture Evaluation Comments Posture Comments forward shoulders Palpation Assessment Location One Palpation Location Right shoulder Palpation Findings Soft Tissue Tightness,Muscle Guarding,Tenderness Palpation Details scapular tension and tightness most in rhomboids and levator scap, some in subscap and infraspinatus PT-OP-K Range of Motion Start: 03/27/21 09:43 Freq: Status: Active Protocol: Document 03/27/21 11:23 AMB (Rec: 03/27/21 11:30 AMB [id number]) Shoulder Goniometric Range of Motion Shoulder Right Passive Testing Position Supine Flexion 120 Abduction 95 External Rotation at 45 degrees 45 Abduction Right Active Testing Position Supine PT-OP-M Strength Start: 03/27/21 09:43 Freq: Status: Active Protocol: Document 03/27/21 11:15 AMB (Rec: 03/28/21 13:39 AMB [email or web address]) Shoulder Strength Shoulder Manual Muscle Testing Right Flexion 4 Good Extension 4- Good- Abduction (C5) 4- Good- External Rotation 4- Good- Internal Rotation 4- Good- PT-OP-Q Treatments Start: 03/27/21 09:43 Freq: Status: Active Protocol: Document 04/03/21 07:30 AMB (Rec: 04/03/21 09:48 AMB [email or web address]) Cardio Equipment Upper Body Ergometer (UBE) Duration (Minutes) 5 Therapeutic Exercises Sitting Exercises memo Reps/Minutes 5 min Comments abd and flexion, added IR Standing Exercises 4 Standing Exercise Name PNF diagonals Resistance #1 t band Comments 10 band rows Resistance #3 Reps/Minutes 2x10 Comments cues for slow speed band IR Resistance #1 Reps/Minutes 2x10 Comments cue slow speed, elbow at side band ER Reps/Minutes #1, 2x10 Comments elbow at side 3 Standing Exercise Name wall walk forward Reps/Minutes 4 Comments forward, added scaption Manual Therapy Treatment Soft Tissue Mobilization 1 Body Location infraspinatus, levator scap, rhomboids Intensity/Depth Moderate Body Position Sidelying Other Other Manual Treatments PROM all planes PT-OP-T Assessment and Plan Start: 03/27/21 09:43 Freq: Status: Active Protocol: Document 04/03/21 07:31 AMB (Rec: 04/03/21 08:17 AMB [id number]) Physical Therapy Assessment Goals Two Impairment ROM Short Term Goal (STG) [place] will improve her passive shoulder flexion to 150 degrees without an increase in pain. STG Duration 4 weeks Property Developer Goal (LTG) [place] will improve her active shoulder flexion so that she can put dishes away in a tall cabinet without pain. LTG Duration MET One Impairment Pain Short Term Goal (STG) [place] will sleep on her right shoulder without being woken secondary to pain. STG Duration MET Custodial Goal (LTG) [place] will perform all upper body dressing without an increase in baseline shoulder pain. LTG Duration 8 weeks Assessment Summary Assessment [place] is doing well, will need to progress over shoulder strengthening and continue to work on shoulder IR, but overall doing well. Physical Therapy Plan Next Visit Focus/Plan Next Note Type Treatment Note Next Visit Plan Devora james on PNF diagonal.
--- NOTE | 2021-04-05 08:43 | PT.OTN ---
Current Diagnoses Other specified mononeuropathies of right upper limb (04/05/21) Pain in right shoulder (04/05/21) Physical Therapy Treatment Note PT-OP-A Visit Information Start: 03/27/21 09:43 Freq: Status: Active Protocol: Document 04/05/21 07:30 AMB (Rec: 04/05/21 08:42 AMB [id number]) Out-Patient Physical Therapy Visit Information Visit Information Visit Type Treatment Note Visit Start Time 07:30 Visit Stop Time 08:10 Total Visit Minutes 40 Visit Number 4 PT-OP-B Current Condition Start: 03/27/21 09:43 Freq: Status: Active Protocol: Document 03/27/21 11:14 AMB (Rec: 03/27/21 11:23 AMB [id number]) Current Condition History of Current Condition Onset Date 5 weeks ago Current Complaints shoulder History of Current Condition Reaching R shoulder up, across or behind has been painful. Insidious onset, getting better, but still painful. Sharp pain in the front of the shoulder and into the shoulder blade when moving, but doesn't hurt at rest. 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 Treatment Goals Patient/Caregiver Goals Reduce pain with reaching up, across and behind Prior Functional Status Baseline Function- ADL's Independent Baseline Function- Mobility Independent Current Functional Impairments (Reported) Functional Limitations- ADL's difficulty donning bra Personal Factors Other Personal Factors That May Effect none Therapy/Recovery PT-OP-C Subjective Start: 03/27/21 09:43 Freq: Status: Active Protocol: Document 04/05/21 07:30 AMB (Rec: 04/05/21 08:42 AMB [id number]) OP-PT Subjective Patient Comments Patient Comments Reaching behind back is a lot better. No pain with sleeping on shoulder. PT-OP-J Posture/Palpation/Skin Start: 03/27/21 09:43 Freq: Status: Active Protocol: Document 03/27/21 11:15 AMB (Rec: 03/28/21 13:38 AMB [email or web address]) Posture Evaluation Comments Posture Comments forward shoulders Palpation Assessment Location One Palpation Location Right shoulder Palpation Findings Soft Tissue Tightness,Muscle Guarding,Tenderness Palpation Details scapular tension and tightness most in rhomboids and levator scap, some in subscap and infraspinatus PT-OP-K Range of Motion Start: 03/27/21 09:43 Freq: Status: Active Protocol: Document 03/27/21 11:23 AMB (Rec: 03/27/21 11:30 AMB [id number]) Shoulder Goniometric Range of Motion Shoulder Right Passive Testing Position Supine Flexion 120 Abduction 95 External Rotation at 45 degrees 45 Abduction Right Active Testing Position Supine PT-OP-M Strength Start: 03/27/21 09:43 Freq: Status: Active Protocol: Document 03/27/21 11:15 AMB (Rec: 03/28/21 13:39 AMB [email or web address]) Shoulder Strength Shoulder Manual Muscle Testing Right Flexion 4 Good Extension 4- Good- Abduction (C5) 4- Good- External Rotation 4- Good- Internal Rotation 4- Good- PT-OP-Q Treatments Start: 03/27/21 09:43 Freq: Status: Active Protocol: Document 04/05/21 07:30 AMB (Rec: 04/05/21 08:42 AMB [id number]) Therapeutic Exercises Standing Exercises 6 Standing Exercise Name band abduction Resistance #1 band Reps/Minutes 10 Comments small range 5 Standing Exercise Name band flexion Reps/Minutes 10 Comments #1 band 4 Standing Exercise Name PNF diagonals Resistance #1 t band Comments 10 band IR Resistance #2 Reps/Minutes 2x10 Comments cue slow speed, elbow at side band ER Reps/Minutes #2, 2x10 Comments elbow at side 3 Standing Exercise Name wall walk forward Reps/Minutes 4 Comments forward, added hand lift off 2 Standing Exercise Name countertop push up PT-OP-T Assessment and Plan Start: 03/27/21 09:43 Freq: Status: Active Protocol: Document 04/05/21 07:30 AMB (Rec: 04/05/21 08:42 AMB [id number]) Physical Therapy Assessment Goals Two Impairment ROM Short Term Goal (STG) [place] will improve her passive shoulder flexion to 150 degrees without an increase in pain. STG Duration 4 weeks Workforce Planner Goal (LTG) [place] will improve her active shoulder flexion so that she can put dishes away in a tall cabinet without pain. LTG Duration MET One Impairment Pain Short Term Goal (STG) [place] will sleep on her right shoulder without being woken secondary to pain. STG Duration MET Senior Living Goal (LTG) [place] will perform all upper body dressing without an increase in baseline shoulder pain. LTG Duration 8 weeks Assessment Summary Assessment [place] is doing well, advanced HEP to include more strengthening which she tolerated well. Physical Therapy Plan Next Visit Focus/Plan Next Note Type Treatment Note Next Visit Plan Progress t band strengthening
--- NOTE | 2021-04-09 13:46 | PT.OTN ---
Current Diagnoses Other specified mononeuropathies of right upper limb (04/09/21) Pain in right shoulder (04/09/21) Physical Therapy Treatment Note PT-OP-A Visit Information Start: 03/27/21 09:43 Freq: Status: Active Protocol: Document 04/09/21 13:00 AMB (Rec: 04/09/21 13:45 AMB [id number]) Out-Patient Physical Therapy Visit Information Visit Information Visit Type Treatment Note Visit Start Time 13:00 Visit Stop Time 13:45 Total Visit Minutes 45 Visit Number 5 PT-OP-B Current Condition Start: 03/27/21 09:43 Freq: Status: Active Protocol: Document 03/27/21 11:14 AMB (Rec: 03/27/21 11:23 AMB [id number]) Current Condition History of Current Condition Onset Date 5 weeks ago Current Complaints shoulder History of Current Condition Reaching R shoulder up, across or behind has been painful. Insidious onset, getting better, but still painful. Sharp pain in the front of the shoulder and into the shoulder blade when moving, but doesn't hurt at rest. 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 Treatment Goals Patient/Caregiver Goals Reduce pain with reaching up, across and behind Prior Functional Status Baseline Function- ADL's Independent Baseline Function- Mobility Independent Current Functional Impairments (Reported) Functional Limitations- ADL's difficulty donning bra Personal Factors Other Personal Factors That May Effect none Therapy/Recovery PT-OP-C Subjective Start: 03/27/21 09:43 Freq: Status: Active Protocol: Document 04/09/21 13:00 AMB (Rec: 04/09/21 13:45 AMB [id number]) OP-PT Subjective Patient Comments Patient Comments Exercises are going well. Arm fatigues but isn't painful. PT-OP-J Posture/Palpation/Skin Start: 03/27/21 09:43 Freq: Status: Active Protocol: Document 03/27/21 11:15 AMB (Rec: 03/28/21 13:38 AMB [email or web address]) Posture Evaluation Comments Posture Comments forward shoulders Palpation Assessment Location One Palpation Location Right shoulder Palpation Findings Soft Tissue Tightness,Muscle Guarding,Tenderness Palpation Details scapular tension and tightness most in rhomboids and levator scap, some in subscap and infraspinatus PT-OP-K Range of Motion Start: 03/27/21 09:43 Freq: Status: Active Protocol: Document 03/27/21 11:23 AMB (Rec: 03/27/21 11:30 AMB [id number]) Shoulder Goniometric Range of Motion Shoulder Right Passive Testing Position Supine Flexion 120 Abduction 95 External Rotation at 45 degrees 45 Abduction Right Active Testing Position Supine PT-OP-M Strength Start: 03/27/21 09:43 Freq: Status: Active Protocol: Document 03/27/21 11:15 AMB (Rec: 03/28/21 13:39 AMB [email or web address]) Shoulder Strength Shoulder Manual Muscle Testing Right Flexion 4 Good Extension 4- Good- Abduction (C5) 4- Good- External Rotation 4- Good- Internal Rotation 4- Good- PT-OP-Q Treatments Start: 03/27/21 09:43 Freq: Status: Active Protocol: Document 04/09/21 13:00 AMB (Rec: 04/09/21 13:45 AMB [id number]) Cardio Equipment Upper Body Ergometer (UBE) Duration (Minutes) 5 Therapeutic Exercises Sitting Exercises memo Reps/Minutes 5 min Comments abd and flexion, added IR Standing Exercises 6 Standing Exercise Name band abduction Resistance #1 band Reps/Minutes 10 Comments small range 4 Standing Exercise Name PNF diagonals Resistance #2 t band Comments 10 Manual Therapy Treatment Other Other Manual Treatments PROM all planes-=- mild discomfort at end range flexion to begin with then progressed to feeling good. PT-OP-T Assessment and Plan Start: 03/27/21 09:43 Freq: Status: Active Protocol: Document 04/09/21 13:00 AMB (Rec: 04/09/21 13:45 AMB [id number]) Physical Therapy Assessment Goals Two Impairment ROM Short Term Goal (STG) [place] will improve her passive shoulder flexion to 150 degrees without an increase in pain. STG Duration 4 weeks Actuarial Manager Goal (LTG) [place] will improve her active shoulder flexion so that she can put dishes away in a tall cabinet without pain. LTG Duration MET One Impairment Pain Short Term Goal (STG) [place] will sleep on her right shoulder without being woken secondary to pain. STG Duration MET Actuarial Manager Goal (LTG) [place] will perform all upper body dressing without an increase in baseline shoulder pain. LTG Duration 8 weeks Assessment Summary Assessment [place] is doing well, did feel shoulder with lifting ghassan tree into truck over the weekend, but otherwise shoulder is feeling pretty good. Physical Therapy Plan Next Visit Focus/Plan Next Note Type Treatment Note Next Visit Plan Progress t band strengthening
--- NOTE | 2021-04-12 08:52 | PT.OTN ---
Current Diagnoses Other specified mononeuropathies of right upper limb (04/12/21) Pain in right shoulder (04/12/21) Physical Therapy Treatment Note PT-OP-A Visit Information Start: 03/27/21 09:43 Freq: Status: Active Protocol: Document 04/12/21 08:15 AMB (Rec: 04/12/21 08:16 AMB [email or web address]) Out-Patient Physical Therapy Visit Information Visit Information Visit Type Discharge Summary Visit Start Time 07:30 Visit Stop Time 08:00 Total Visit Minutes 30 Visit Number 6 PT-OP-B Current Condition Start: 03/27/21 09:43 Freq: Status: Active Protocol: Document 03/27/21 11:14 AMB (Rec: 03/27/21 11:23 AMB [id number]) Current Condition History of Current Condition Onset Date 5 weeks ago Current Complaints shoulder History of Current Condition Reaching R shoulder up, across or behind has been painful. Insidious onset, getting better, but still painful. Sharp pain in the front of the shoulder and into the shoulder blade when moving, but doesn't hurt at rest. 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 Treatment Goals Patient/Caregiver Goals Reduce pain with reaching up, across and behind Prior Functional Status Baseline Function- ADL's Independent Baseline Function- Mobility Independent Current Functional Impairments (Reported) Functional Limitations- ADL's difficulty donning bra Personal Factors Other Personal Factors That May Effect none Therapy/Recovery PT-OP-C Subjective Start: 03/27/21 09:43 Freq: Status: Active Protocol: Document 04/12/21 08:15 AMB (Rec: 04/12/21 08:16 AMB [email or web address]) OP-PT Subjective Patient Comments Patient Comments Pt feels like shoulder is good , can sleep on it and don/doff clothing, reach up just fine PT-OP-J Posture/Palpation/Skin Start: 03/27/21 09:43 Freq: Status: Active Protocol: Document 03/27/21 11:15 AMB (Rec: 03/28/21 13:38 AMB [email or web address]) Posture Evaluation Comments Posture Comments forward shoulders Palpation Assessment Location One Palpation Location Right shoulder Palpation Findings Soft Tissue Tightness,Muscle Guarding,Tenderness Palpation Details scapular tension and tightness most in rhomboids and levator scap, some in subscap and infraspinatus PT-OP-K Range of Motion Start: 03/27/21 09:43 Freq: Status: Active Protocol: Document 04/12/21 07:40 AMB (Rec: 04/12/21 07:43 AMB [id number]) Shoulder Goniometric Range of Motion Shoulder Right Active Testing Position Standing Flexion 154 Abduction 166 PT-OP-M Strength Start: 03/27/21 09:43 Freq: Status: Active Protocol: Document 03/27/21 11:15 AMB (Rec: 03/28/21 13:39 AMB [email or web address]) Shoulder Strength Shoulder Manual Muscle Testing Right Flexion 4 Good Extension 4- Good- Abduction (C5) 4- Good- External Rotation 4- Good- Internal Rotation 4- Good- PT-OP-Q Treatments Start: 03/27/21 09:43 Freq: Status: Active Protocol: Document 04/12/21 07:30 AMB (Rec: 04/17/21 08:51 AMB [id number]) Therapeutic Exercises Sitting Exercises memo Reps/Minutes 5 min Comments abd and flexion, added IR Standing Exercises 6 Standing Exercise Name band abduction Resistance #1 band Reps/Minutes 10 Comments small range 5 Standing Exercise Name band flexion Reps/Minutes 10 Comments #1 band 4 Standing Exercise Name PNF diagonals Resistance #2 t band Comments 10 band IR Resistance #2 Reps/Minutes 2x10 Comments cue slow speed, elbow at side band ER Reps/Minutes #2, 2x10 Comments elbow at side 3 Standing Exercise Name wall walk forward Reps/Minutes 4 Comments forward, added hand lift off 2 Standing Exercise Name countertop push up PT-OP-T Assessment and Plan Start: 03/27/21 09:43 Freq: Status: Active Protocol: Document 04/12/21 07:44 AMB (Rec: 04/12/21 08:14 AMB [id number]) Physical Therapy Assessment Goals Two Impairment ROM Short Term Goal (STG) [place] will improve her passive shoulder flexion to 150 degrees without an increase in pain. STG Duration MET Fpc Goal (LTG) [place] will improve her active shoulder flexion so that she can put dishes away in a tall cabinet without pain. LTG Duration MET One Impairment Pain Short Term Goal (STG) [place] will sleep on her right shoulder without being woken secondary to pain. STG Duration MET Flight Attendant Goal (LTG) [place] will perform all upper body dressing without an increase in baseline shoulder pain. LTG Duration MET Assessment Summary Assessment [place] is doing well, she feels like the shoulder is pretty much back to normal, but will continue with her shoulder strengthening. She is discharged as all goals are met. Physical Therapy Plan Discharge Physical Therapy Discharge Comments Pt has met all goals and will continue with HEP
--- NOTE | 2021-04-17 08:51 | PT.OTN ---
Current Diagnoses Other specified mononeuropathies of right upper limb (04/12/21) Pain in right shoulder (04/12/21) Physical Therapy Treatment Note PT-OP-A Visit Information Start: 03/27/21 09:43 Freq: Status: Active Protocol: Document 04/12/21 08:15 AMB (Rec: 04/12/21 08:16 AMB [email or web address]) Out-Patient Physical Therapy Visit Information Visit Information Visit Type Discharge Summary Visit Start Time 07:30 Visit Stop Time 08:00 Total Visit Minutes 30 Visit Number 6 PT-OP-B Current Condition Start: 03/27/21 09:43 Freq: Status: Active Protocol: Document 03/27/21 11:14 AMB (Rec: 03/27/21 11:23 AMB [id number]) Current Condition History of Current Condition Onset Date 5 weeks ago Current Complaints shoulder History of Current Condition Reaching R shoulder up, across or behind has been painful. Insidious onset, getting better, but still painful. Sharp pain in the front of the shoulder and into the shoulder blade when moving, but doesn't hurt at rest. 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 Treatment Goals Patient/Caregiver Goals Reduce pain with reaching up, across and behind Prior Functional Status Baseline Function- ADL's Independent Baseline Function- Mobility Independent Current Functional Impairments (Reported) Functional Limitations- ADL's difficulty donning bra Personal Factors Other Personal Factors That May Effect none Therapy/Recovery PT-OP-C Subjective Start: 03/27/21 09:43 Freq: Status: Active Protocol: Document 04/12/21 08:15 AMB (Rec: 04/12/21 08:16 AMB [email or web address]) OP-PT Subjective Patient Comments Patient Comments Pt feels like shoulder is good , can sleep on it and don/doff clothing, reach up just fine PT-OP-J Posture/Palpation/Skin Start: 03/27/21 09:43 Freq: Status: Active Protocol: Document 03/27/21 11:15 AMB (Rec: 03/28/21 13:38 AMB [email or web address]) Posture Evaluation Comments Posture Comments forward shoulders Palpation Assessment Location One Palpation Location Right shoulder Palpation Findings Soft Tissue Tightness,Muscle Guarding,Tenderness Palpation Details scapular tension and tightness most in rhomboids and levator scap, some in subscap and infraspinatus PT-OP-K Range of Motion Start: 03/27/21 09:43 Freq: Status: Active Protocol: Document 04/12/21 07:40 AMB (Rec: 04/12/21 07:43 AMB [id number]) Shoulder Goniometric Range of Motion Shoulder Right Active Testing Position Standing Flexion 154 Abduction 166 PT-OP-M Strength Start: 03/27/21 09:43 Freq: Status: Active Protocol: Document 03/27/21 11:15 AMB (Rec: 03/28/21 13:39 AMB [email or web address]) Shoulder Strength Shoulder Manual Muscle Testing Right Flexion 4 Good Extension 4- Good- Abduction (C5) 4- Good- External Rotation 4- Good- Internal Rotation 4- Good- PT-OP-Q Treatments Start: 03/27/21 09:43 Freq: Status: Active Protocol: Document 04/12/21 07:30 AMB (Rec: 04/17/21 08:51 AMB [id number]) Therapeutic Exercises Sitting Exercises memo Reps/Minutes 5 min Comments abd and flexion, added IR Standing Exercises 6 Standing Exercise Name band abduction Resistance #1 band Reps/Minutes 10 Comments small range 5 Standing Exercise Name band flexion Reps/Minutes 10 Comments #1 band 4 Standing Exercise Name PNF diagonals Resistance #2 t band Comments 10 band IR Resistance #2 Reps/Minutes 2x10 Comments cue slow speed, elbow at side band ER Reps/Minutes #2, 2x10 Comments elbow at side 3 Standing Exercise Name wall walk forward Reps/Minutes 4 Comments forward, added hand lift off 2 Standing Exercise Name countertop push up PT-OP-T Assessment and Plan Start: 03/27/21 09:43 Freq: Status: Active Protocol: Document 04/12/21 07:44 AMB (Rec: 04/12/21 08:14 AMB [id number]) Physical Therapy Assessment Goals Two Impairment ROM Short Term Goal (STG) [place] will improve her passive shoulder flexion to 150 degrees without an increase in pain. STG Duration MET Long-Term Goal (LTG) [place] will improve her active shoulder flexion so that she can put dishes away in a tall cabinet without pain. LTG Duration MET One Impairment Pain Short Term Goal (STG) [place] will sleep on her right shoulder without being woken secondary to pain. STG Duration MET Industrial Relations Specialist Goal (LTG) [place] will perform all upper body dressing without an increase in baseline shoulder pain. LTG Duration MET Assessment Summary Assessment [place] is doing well, she feels like the shoulder is pretty much back to normal, but will continue with her shoulder strengthening. She is discharged as all goals are met. Physical Therapy Plan Discharge Physical Therapy Discharge Comments Pt has met all goals and will continue with HEP
== END 2021-05-29 08:52 ==
LOC: PHYS 07:30
PROVIDERS: Family Provider Nurse Practitioner; PCP Nurse Practitioner; Referring Provider Nurse Practitioner; Visit Provider Nurse Practitioner
DX: M25.511 Pain in right shoulder (principal); G56.81 Other specified mononeuropathies of right upper limb
CPT/HCPCS: 97110; 97140; 97161

== ENCOUNTER → 2021-06-08 09:29 | Outpatient (CLI) | payer OTHER, SELFPAY ==
[2021-06-08 10:04] LABS: Add Manual Diff / Slide Review NO; Basophils Absolute Auto 100 /uL (0-100); Basophils Percent Auto 1.3 % (0-2); Eosinophils Absolute Auto 200 /uL (0-450); Eosinophils Percent Auto 2.9 % (2-4); Hematocrit 39.8 % (36-46); Hemoglobin 13.1 g/dL (12.0-16.0); Lymphocytes Absolute Auto 1200 /uL (1100-4500); Lymphocytes Percent Auto 18.8 % (25-40); Mean Corpuscular Hemoglobin 31.6 PG (26-34); Mean Corpuscular Volume 95.8 fL (80-100); Monocytes Absolute Auto 500 /uL (0-900); Monocytes Percent Auto 7.4 % (3-14); Neutrophils Absolute Auto 4400 /uL (1500-7000); Neutrophils Percent Auto 69.6 % (50-75); Platelet Count 301 X10^3/uL (150-400); Red Blood Cell Count 4.15 X10^6/uL (4.0-5.2); Red Cell Distribution Width 14.1 % (11.6-14.8); White Blood Cell Count 6.4 X10^3/uL (4.5-11.0)
[2021-06-08 10:25] LABS: Alanine Aminotransferase 27 IU/L (<35); Albumin 4.5 g/dL (3.5-5.0); Albumin Globulin Ratio 1.5 (1.0-2.8); Alkaline Phosphatase 67 U/L (38-126); Aspartate Aminotransferase 31 IU/L (14-36); BUN Creatinine Ratio 22.6 (6-22); Bilirubin Total 0.5 mg/dL (0.2-1.3); Blood Urea Nitrogen 19 mg/dL (7-17); Calcium 10.2 mg/dL (8.4-10.2); Carbon Dioxide 30 mmol/L (22-32); Chloride 103 mmol/L (98-107); Estimated Glomerular Filt Rate > 60.0 mL/min (>60); Globulin 3.1 g/dL (1.7-4.1); Glucose 111 mg/dL (70-100); HEMOLYSIS < 15 (0-50); Potassium 3.7 mmol/L (3.4-5.1); Sodium 140 mmol/L (137-145); Total Protein 7.6 g/dL (6.3-8.2)
== END ==
PROVIDERS: Family Provider Nurse Practitioner; PCP Nurse Practitioner; Referring Provider Nurse Practitioner; Visit Provider Nurse Practitioner
DX: D50.0 Iron deficiency anemia secondary to blood loss (chronic) (principal); K51.90 Ulcerative colitis, unspecified, without complications; Z79.899 Other long term (current) drug therapy
CPT/HCPCS: 36415; 80053; 85025

== ENCOUNTER → 2022-02-22 15:03 | Outpatient (CLI) | payer OTHER, SELFPAY | PROVIDERS: Family Provider Nurse Practitioner; PCP Nurse Practitioner; Referring Provider Internal Medicine; Visit Provider Internal Medicine | DX: Z23 Encounter for immunization (principal) | CPT/HCPCS: 90471; 90686 ==

== ENCOUNTER → 2022-03-14 07:38 | Outpatient (CLI) | payer OTHER, SELFPAY ==
[2022-03-14 09:19] LABS: Add Manual Diff / Slide Review NO; Basophils Absolute Auto 100 /uL (0-100); Basophils Percent Auto 1.1 % (0-2); Eosinophils Absolute Auto 300 /uL (0-450); Eosinophils Percent Auto 5.9 % (2-4); Hematocrit 39.2 % (36-46); Lymphocytes Absolute Auto 1000 /uL (1100-4500); Lymphocytes Percent Auto 19.5 % (25-40); Mean Corpuscular HGB Conc 33.2 % (30-36); Mean Corpuscular Hemoglobin 31.8 PG (26-34); Mean Corpuscular Volume 95.9 fL (80-100); Monocytes Absolute Auto 400 /uL (0-900); Monocytes Percent Auto 8.3 % (3-14); Neutrophils Absolute Auto 3300 /uL (1500-7000); Neutrophils Percent Auto 65.2 % (50-75); Platelet Count 291 X10^3/uL (150-400); Red Blood Cell Count 4.09 X10^6/uL (4.0-5.2); Red Cell Distribution Width 14.3 % (11.6-14.8); White Blood Cell Count 5.1 X10^3/uL (4.5-11.0)
[2022-03-14 09:31] LABS: Hemoglobin A1C% w Est Avg Glu 5.8 % (4.0-6.0)
[2022-03-14 09:54] LABS: Creatinine Urine Random 159.6 mg/dL
[2022-03-14 10:00] LABS: Microalbumin Urine Random 1.6 mg/dL (0-1.6)
[2022-03-14 10:05] LABS: Alanine Aminotransferase 28 IU/L (<35); Albumin 4.2 g/dL (3.5-5.0); Albumin Globulin Ratio 1.3 (1.0-2.8); Alkaline Phosphatase 72 U/L (38-126); Aspartate Aminotransferase 26 IU/L (14-36); BUN Creatinine Ratio 18.9 (6-22); Bilirubin Total 0.8 mg/dL (0.2-1.3); Blood Urea Nitrogen 14 mg/dL (7-17); Calcium 9.3 mg/dL (8.4-10.2); Carbon Dioxide 31 mmol/L (22-32); Chloride 101 mmol/L (98-107); Cholesterol 209 mg/dL (140-199); Estimated Glomerular Filt Rate > 60 mL/min (>60); Globulin 3.3 g/dL (1.7-4.1); Glucose 117 mg/dL (80-110); HDL Cholesterol 93 mg/dL (40-60); HEMOLYSIS < 15 (0-50); LDL Cholesterol Calculated 101 mg/dL (<100); Potassium 3.5 mmol/L (3.4-5.1); Sodium 137 mmol/L (137-145); Total Protein 7.5 g/dL (6.3-8.2); Triglycerides 74 mg/dL (35-150)
[2022-03-14 10:08] LABS: Free T3, Triiodothyronine Free 3.47 pg/mL (2.77-5.27); Free T4, Direct Thyroxine 1.25 ng/dL (0.78-2.19)
[2022-03-14 10:22] LABS: Thyroid Stimulating Hormone 1.81 uIU/mL (0.47-4.68)
[2022-03-14 10:43] LABS: Hep C Virus Ab w/Reflex Quant NEGATIVE s/c (NEGATIVE)
== END ==
PROVIDERS: Family Provider Nurse Practitioner; PCP Nurse Practitioner; Referring Provider Nurse Practitioner; Visit Provider Nurse Practitioner
DX: Z00.00 Encounter for general adult medical examination without abnormal findings (principal); E78.5 Hyperlipidemia, unspecified; F32.9 Major depressive disorder, single episode, unspecified; I10 Essential (primary) hypertension; Z11.59 Encounter for screening for other viral diseases
CPT/HCPCS: 36415; 80053; 80061; 82043; 82570; 83036; 84439; 84443; 84481; 85025; 86803

== ENCOUNTER → 2022-03-25 07:24 | Outpatient (CLI) | payer OTHER, SELFPAY ==
--- NOTE | 2022-03-25 07:26 | DI.MG.S_ITS ---
BILATERAL DIGITAL SCREENING MAMMOGRAM 3D/2D WITH CAD: 03/25/2022 CLINICAL: Routine screening. Comparison is made to exams dated: 03/20/2021 mammogram, 01/08/2020 mammogram, and 12/02/2018 mammogram - [facility]. There are scattered areas of fibroglandular density in both breasts (category b / 25%-50% glandular tissue). Current study was also evaluated with a Computer Aided Detection (CAD) system. There are benign calcifications in both breasts. No significant masses, calcifications, or other findings are seen in either breast. There has been no significant interval change. IMPRESSION: BENIGN There is no mammographic evidence of malignancy. A 1 year screening mammogram is recommended. Based on the Tyrer Cuzick model (a risk assessment model) the patient's lifetime risk is 9.5% and her 10 year risk is 3.8%. According to the ACR, ACS, and NCCN guidelines, an annual breast MRI exam along with mammogram is recommended if the patient's lifetime risk is 20% or greater. This exam was interpreted at Station ID: [id number]. NOTE: For mammograms, a report in lay terms will be sent to the patient. Approximately 15% of breast malignancies will not be visualized mammographically. In the management of a palpable breast mass, a negative mammogram must not discourage biopsy of a clinically suspicious lesion. Electronically Signed By: Daisy villegas/lauren:03/25/2022 16:53:25 letter sent: Normal Exam ACR BI-RADS Category 2: Benign Finding(s) 3342F
== END ==
PROVIDERS: Family Provider Nurse Practitioner; PCP Nurse Practitioner; Referring Provider Nurse Practitioner; Visit Provider Nurse Practitioner
DX: Z12.31 Encounter for screening mammogram for malignant neoplasm of breast (principal)
CPT/HCPCS: 77063; 77067

== ENCOUNTER 2022-11-25 07:49 | Day surgery (SDC) | payer OTHER, SELFPAY ==
--- NOTE | 2022-11-25 | PATH_ITS ---
[facility] Accession Number: [id number] No. of containers..07 Tissue . 01 Material submitted: . PART A: colon - CECAL POLYP PART B: colon - ASCENDING COLON BX PART C: colon - TRANSVERSE COLON BX PART D: colon - DESCENDING COLON BX PART E: colon - DESCENDING COLON POLYP PART F: colon - SIGMOID BX PART G: rectum - RECTAL BX . 01 Diagnosis: A. Cecal Polyp: Small serrated lesion, consistent with early sessile serrated adenoma. . B-D. Ascending, Transverse, and Descending Colon, Biopsies: Colonic mucosa with no diagnostic abnormality. Negative for active, chronic, and microscopic colitis. Negative for dysplasia and malignancy. . E. Descending Colon Polyp: Hyperplastic polyp. . F. Sigmoid Colon, Biopsy: Mild active colitis with mild crypt architectural distortion; please see comment. Negative for granulomas, dysplasia or malignancy. . G. Rectum, Biopsy: Colonic mucosa with no significant diagnostic abnormality. Negative for active inflammation, granulomas, dysplasia, and malignancy. . [facility] 12/02/2022 1647 Local . 01 Comment: F. The findings in the sigmoid colon biopsy raise a differential diagnosis, including infection, drug/toxin-induced injury, diverticulitis, and, in the appropriate clinical setting, idiopathic inflammatory bowel disease. . 01 Electronically signed: . Rob Winter MD, PhD, Pathologist NPI- [id number] . 01 Gross description: . Part A: CECAL POLYP: Received in formalin is 1 fragment(s) of ann, soft tissue measuring 0.6 x 0.3 x 0.3 cm submitted entirely in 1 cassette(s) Part B: ASCENDING COLON BX: Received in formalin is 1 fragment(s) of ann, soft tissue measuring 0.3 x 0.2 x 0.2 cm submitted entirely in 1 cassette(s) Part C: TRANSVERSE COLON BX: Received in formalin are 2 fragment(s) of ann, soft tissue measuring 0.1 x 0.1 x 0.1 cm to 0.2 x 0.2 x 0.2 cm submitted entirely in 1 cassette(s) Part D: DESCENDING COLON BX: Received in formalin is 1 fragment(s) of ann, soft tissue measuring 0.3 x 0.2 x 0.2 cm submitted entirely in 1 cassette(s) Part E: DESCENDING COLON POLYP: Received in formalin is 1 fragment(s) of ann, soft tissue measuring 0.2 x 0.2 x 0.1 cm submitted entirely in 1 cassette(s) Part F: SIGMOID BX: Received in formalin are 2 fragment(s) of ann, soft tissue measuring 0.1 x 0.1 x 0.1 cm to 0.3 x 0.3 x 0.2 cm submitted entirely in 1 cassette(s) Part G: RECTAL BX: Received in formalin are 2 fragment(s) of ann, soft tissue measuring 0.1 x 0.1 x 0.1 cm to 0.3 x 0.3 x 0.2 cm submitted entirely in 1 cassette(s) /KYLIE 11/28/2022 0030 Local . 01 Pathologist provided ICD-10: K52.9, D12.0 . 01 CPT . 123525, 467848, 680661, 180898, 365039, 340856, [id number] Specimen Comment: A courtesy copy of this report has been sent to [phone] Performed at: 01 [facility] [address] [place] [address], [place], [place] [id number] MD Francis Souza MD Phone: [phone]
[2022-11-25 08:05] VITALS: BP 139/88; PULSE 75; RESP 16; TEMP 36.1; O2SAT 16; BMI 41.8
[2022-11-25] MEDS: LACTATED RINGERS 1,000 ML 84 ML IV (08:15)
--- NOTE | 2022-11-25 08:27 | PM.HP.1 ---
History of Present Illness History of Present Illness Date Patient Seen: 11/25/22 Time Patient Seen: 08:28 Chief complaint: Dx Colonoscopy Narrative: Personal history of ulcerative colitis on sulfasalazine. Occasional flares. Here for surveillance. [facility] Medical History Breast cancer screening Colitis Essential hypertension Heartburn Hyperlipidemia (06/13/11) Hyperlipidemia Hypertension Morbid obesity with BMI of 45.0-49.9, adult Obesity Psoriasis Social History household members: spouse Smoking Status: Former smoker Tobacco: How many years used: 12 second hand exposure: No alcohol intake: current substance use type: does not use Meds Home Medications and Allergies Home Medications Medication Instructions Recorded Confirmed Type amlodipine 10 mg tablet 10 mg PO DAILY #90 tabs 04/18/22 11/25/22 Rx atorvastatin 40 mg tablet See Rx Instructions .Route 04/18/22 11/25/22 Rx .COMPLEX #90 tabs hydrochlorothiazide 50 mg tablet See Rx Instructions .Route 04/18/22 11/25/22 Rx .COMPLEX #90 tabs iron polysacch cplx 150 mg See Rx Instructions .Route 04/18/22 06/25/22 Rx iron-vit B12 25 mcg-folic acid 1 .COMPLEX #90 caps mg capsule (Poly-Iron) labetalol 100 mg tablet See Rx Instructions .Route 04/18/22 11/25/22 Rx .COMPLEX #180 tabs losartan 100 mg tablet 100 mg PO DAILY #90 tabs 04/18/22 11/25/22 Rx sulfasalazine 500 mg 1 g PO BID #360 tabs 04/18/22 06/25/22 Rx tablet,delayed release triamcinolone acetonide 0.1 % 1 applic topical BID #80 grams 04/18/22 06/25/22 Rx topical ointment Estriol 1mg Vaginal Shayy See Rx Instructions .Route 06/25/22 Rx .COMPLEX #30 ea amlodipine 10 mg tablet 10 mg PO BID 11/25/22 11/25/22 History Allergies Allergy/AdvReac Type Severity Reaction Status Date / Time atenolol Allergy Intermediate HIVES Verified 11/25/22 08:02 lisinopril AdvReac Mild COUGH Verified 11/25/22 08:02 Review of Systems Review of Systems ROS: Yes All systems reviewed with the patient and are negative except as otherwise documented Exam Vital Signs (past 8 hours): - 11/25/22 08:05 Temperature 96.9 F L Pulse Rate 75 Respiratory Rate 16 Blood Pressure 139/88 Pulse Oximetry 16 L Oxygen Delivery Method Room Air Oxygen Delivery Method Room Air Const General: cooperative HENMT Head: normal to inspection Eyes General: appearance normal, both eyes and all related structures Neck Neck: normal visual inspection Chest Chest: normal inspection of the chest Resp Effort & Inspection: normal respiratory effort Cardio Rate: regular rate GI Inspection: normal to inspection Skin General: no rashes or lesions noted Neuro General: patient alert and patient awake Extrem General: normal to inspection and no pedal edema Psych Appearance: grossly normal Assessment & Plan Assessment & Plan narrative: 61-year-old female with a history of ulcerative colitis here for surveillance colonoscopy. Colonoscopy is pursued today.
--- NOTE | 2022-11-25 08:29 | PM.PREOP ---
Pre-operative Note Interval Note History & Physical reviewed/Exam performed by Physician: Yes Changes to H&P: No ASA Class (for procedural sedation): III
--- NOTE | 2022-11-25 09:44 | PM.OP.COLON ---
Operative Date/Time/Diagnoses Date of procedure: 11/25/22 Time of procedure: 09:44 Pre-op diagnosis: History of ulcerative colitis Post-op diagnosis: same Procedure & Clinicians Study performed: Colonoscopy with biopsies and hot snare polypectomy Same procedure as scheduled: Yes Indications: Ulcerative colitis Surgeon: Barrie Hernandez Procedure Notes SCOAP/Timeout: Done Procedure in detail: After the risks and benefits were explained, written and verbal informed consent was obtained. The patient was brought into the procedure room and placed into the left lateral decubitus position. Please see anesthesia notes for sedation details. Digital rectal examination was accomplished. The scope was introduced into the patient and advanced under direct visualization to the cecum as identified by the appendiceal orifice and ileocecal valve. The scope was slowly withdrawn to carefully examine the mucosa for any defects or lesions. Comprehensive imaging was accomplished throughout the rectum including the dentate line. The colon was decompressed, the scope was then removed from the patient who tolerated the procedure well. Pediatric colonoscope Bowel prep adequate Scope withdrawal time: 17 minutes Sedation minutes: 26 Complications: none Impression: Patient had no evidence of proctitis. There was an approximately 5 cm segment of mild inflammation noted in the sigmoid colon from about 25 cm to 30 cm from the anal verge. There was a pedunculated 8 mm polyp in the proximal descending colon removed with hot snare. In the cecum there was a sessile 7 mm polyp removed with hot snare. Random colon biopsies were taken from the ascending colon, transverse, descending, sigmoid, and finally rectum. The biopsies in the descending were taken very near where the polyp was removed. I did not see any signs of macroscopic colitis in this vicinity. The biopsies were taken from the sigmoid included the inflamed section described above. Endoscopic diagnosis 1. Colon polyps 2. Segmental mild sigmoid colitis Post-procedure Plan for aftercare: 1. Await histopathology. 2. Repeat colonoscopy will likely be suggested for 1-2 years. Disposition: PACU
[2022-11-25 09:45] VITALS: BP 131/66; PULSE 81; RESP 12; TEMP 36.2; O2SAT 100
[2022-11-25 09:50] VITALS: BP 106/63; PULSE 77; RESP 15; O2SAT 97
[2022-11-25 09:56] VITALS: BP 121/70; PULSE 72; RESP 12; O2SAT 97
== END 2022-11-25 10:13 | disposition home or self-care (01) ==
PROVIDERS: Family Provider Nurse Practitioner; PCP Nurse Practitioner; Referring Provider Internal Medicine Gastroenterology; Visit Provider Internal Medicine Gastroenterology
PROC: 0DJD8ZZ Inspection of Lower Intestinal Tract, Via Natural or Artificial Opening Endoscopic (ICD-10-PCS; CPT 45378; principal; 2022-11-25 09:00)
DX: K52.9 Noninfective gastroenteritis and colitis, unspecified (principal); D12.0 Benign neoplasm of cecum
CPT/HCPCS: 45380; J2704

== ENCOUNTER 2023-05-17 08:13 | Emergency (ER) | payer OTHER, SELFPAY ==
[2023-05-17] VITALS (8 sets, daily range): BP systolic 175–187; BP diastolic 84–97; PULSE 66–91; RESP 16; TEMP 36.9; O2SAT 93–98; BMI 31.7
--- NOTE | 2023-05-17 08:24 | DI.CT.S_ITS ---
PROCEDURE: CT CERVICAL SPINE WO CON INDICATIONS: GLF/HEAD INJURY TECHNIQUE: Noncontrast 3 mm thick sections acquired from the skull base to the T4 level. Sagittal and coronal reformats were then constructed. For radiation dose reduction, the following was used: automated exposure control, adjustment of mA and/or kV according to patient size. COMPARISON: None. FINDINGS: Image quality: Excellent. Bones: No acute fractures or dislocations. Visualized superior ribs are intact. Mild multilevel spondylosis. Soft tissues: Prevertebral soft tissues are normal in thickness. No paravertebral hematomas. No apical pneumothoraces. IMPRESSION: No displaced fracture or traumatic subluxation. Approved by: Bob Tsai M.D. on 05/17/2023 at 8:59
--- NOTE | 2023-05-17 08:24 | DI.CT.S_ITS ---
PROCEDURE: CT FACIAL BONES WO CON INDICATIONS: GLF, L JAW PAIN TECHNIQUE: Noncontrast 2.5 mm thick axial images acquired from the mandible through the frontal sinuses, with coronal and sagittal reformatting. For radiation dose reduction, the following was used: automated exposure control, adjustment of mA and/or kV according to patient size. COMPARISON: None. FINDINGS: Image quality: Excellent. Bones and teeth: Orbital hearn are intact. Sinus hearn show no fracture or deformity. Nasal bones and septum are intact. Visualized portions of the mandible demonstrate no fractures or subluxation. Zygomatic arches are intact. Pterygoid plates are intact. Visualized portions of the skull base and auditory canals are intact. Sinuses: Paranasal sinuses are aerated, without fluid levels, mucosal thickening, or mucoceles. Mastoid air cells are aerated. Soft tissues: No edema, masses, or fluid collections. No enlarged lymph nodes. No soft tissue lacerations or debris. Vascular: Visualized vascular structures appear normal in the absence of contrast. Bony vascular foramina and canals are intact. IMPRESSION: No acute facial fracture. Approved by: Bob Tsai M.D. on 05/17/2023 at 9:01
--- NOTE | 2023-05-17 08:24 | DI.CT.S_ITS ---
PROCEDURE: CT HEAD/BRAIN WO CON INDICATIONS: GLF, SEVERE HEADACHE TECHNIQUE: Noncontrast 4.5 mm thick angled axial sections acquired from the foramen magnum to the vertex, with coronal and sagittal reformats. For radiation dose reduction, the following was used: automated exposure control, adjustment of mA and/or kV according to patient size. COMPARISON: None. FINDINGS: Image quality: Diagnostic. CSF spaces: Basal cisterns are patent. No extra-axial fluid collections. Ventricles are normal in size and shape. Brain: No midline shift. No intracranial masses or hemorrhage. Mcintyre-white matter interface is normal. Skull and face: Trace right occipital scalp edema. Calvarium is intact, without suspicious lesions. Please see dedicated facial CT for detailed facial findings. Sinuses: Visualized sinuses and mastoids are clear. IMPRESSION: Trace right occipital scalp edema. No acute intracranial abnormality. Approved by: Bob Tsai M.D. on 05/17/2023 at 8:57
--- NOTE | 2023-05-17 08:25 | ED.FALL ---
HPI - Fall General Chief Complaint: Fall Stated Complaint: slippd on ice. hit head. no thinner Time Seen by Provider: 05/17/23 08:18 History of Present Illness HPI Narrative: 62-year-old female with history of hypertension presents by EMS from home for head pain and jaw pain after a ground level slip and fall earlier this morning. Patient was walking outside when she slipped on ice and fell backwards, striking the back of her head against the ground. She denies loss of consciousness, endorses a splitting headache and left jaw pain. She feels like her teeth line up but it hurts when she connects teeth. Related Data Home Medications Medication Instructions Recorded Confirmed amlodipine 10 mg tablet 10 mg PO BID 11/25/22 11/25/22 Previous Rx's Medication Instructions Recorded amlodipine 10 mg tablet 10 mg PO DAILY #90 tabs 04/18/22 atorvastatin 40 mg tablet See Rx Instructions .Route 04/18/22 .COMPLEX #90 tabs hydrochlorothiazide 50 mg tablet See Rx Instructions .Route 04/18/22 .COMPLEX #90 tabs losartan 100 mg tablet 100 mg PO DAILY #90 tabs 04/18/22 triamcinolone acetonide 0.1 % 1 applic topical BID #80 grams 04/18/22 topical ointment Estriol 1mg Vaginal Carolina See Rx Instructions .Route 06/25/22 .COMPLEX #30 ea labetalol 100 mg tablet See Rx Instructions .Route 03/24/23 .COMPLEX #180 tabs sulfasalazine 500 mg 1 g (2 x 500 mg) PO BID #360 tabs 03/24/23 tablet,delayed release iron polysacch cplx 150 mg See Rx Instructions .Route 05/12/23 iron-vit B12 25 mcg-folic acid 1 .COMPLEX #90 caps mg capsule (Poly-Iron) Allergies Allergy/AdvReac Type Severity Reaction Status Date / Time atenolol Allergy Intermediate HIVES Verified 11/25/22 08:02 lisinopril AdvReac Mild COUGH Verified 11/25/22 08:02 Review of Systems Review of Systems Narrative: Negative except as noted above Patient History Medical History Heartburn Breast cancer screening Morbid obesity with BMI of 45.0-49.9, adult Obesity Psoriasis Colitis Hypertension Hyperlipidemia Hyperlipidemia (06/13/11) Essential hypertension Social History household members: spouse Smoking Status: Former smoker Tobacco: How many years used: 12 second hand exposure: No alcohol intake: current substance use type: does not use Smoking Status: Never smoker alcohol intake frequency: 0-2 drinks per day Substance Use Type: does not use Exam Initial Vital Signs Initial Vital Signs: Vital Signs Pulse Rate 91 H 05/17/23 08:15 Blood Pressure 187/97 H 05/17/23 08:15 Pulse Oximetry 98 05/17/23 08:15 Const: Awake, alert, tearful, in pain Eyes: PERRL, EOMI, conjunctiva normal ENT: No malocclusion, TM normal bilaterally, dentition normal, mucous membranes moist Cardiac: regular rate, regular rhythm RESP: unlabored, clear bilaterally, no wheezing GI: Atraumatic, soft, nontender, nondistended, no rebound, no guarding MSK: Atraumatic, full range of motion, pulses equal Skin: Warm, Dry, intact, no rashes Neuro: AO x3, CN II-XII grossly intact, moves all extremities Psych: affect normal, mood normal, not suicidal, not homicidal Course Orders Ordered: Discontinued Medications Hydrocodone Bitart/Acetaminophen (Hydrocodone/Acet 5/325 Tablet) 2 tab PO NOW ONE Stop: 05/17/23 08:26 Last Admin: 05/17/23 08:41 Dose: 2 tab Documented By: CTS Vital Signs Vital signs: Vital Signs - 8 hr 05/17/23 10:30 05/17/23 10:45 05/17/23 10:45 Pulse Rate 66 73 Blood Pressure 175/84 H Pulse Oximetry 93 MDM - Fall MDM Narrative Medical decision making narrative: Nontoxic patient presenting with severe headache after slip and fall at ground level. Not on any blood thinners. Due to the severity of patient's reported pain as well as associated jaw pain CT of the head, neck, maxillofacial bones was ordered. These were negative for acute findings. Patient was given pain medications in the emergency department. Counseled on supportive care or home following head injury. Discharge Plan Departure Patient Disposition: Home Clinical Impression: Head injury Instructions: DI for Closed Head Injury Prescriptions: No Action amlodipine 10 mg tablet 10 mg PO DAILY Qty: 90 3RF Rx Instructions: Take 1 tab daily for HTN. atorvastatin 40 mg tablet See Rx Instructions .ROUTE .COMPLEX Qty: 90 3RF Dose Instruction: take 1 tablet by mouth at bedtime Rx Instructions: take 1 tablet by mouth at bedtime hydrochlorothiazide 50 mg tablet See Rx Instructions .ROUTE .COMPLEX Qty: 90 3RF Dose Instruction: take 1 tablet by mouth every morning Rx Instructions: take 1 tablet by mouth every morning losartan 100 mg tablet 100 mg PO DAILY Qty: 90 3RF Rx Instructions: Take 1 tab by mouth daily for hypertension triamcinolone acetonide 0.1 % ointment 1 applic topical BID Qty: 80 1RF Rx Instructions: Apply twice daily to affected areas of arms, legs, chest Estriol 1mg Vaginal Carolina See Rx Instructions .ROUTE .COMPLEX Qty: 30 2RF Rx Instructions: Insert one carolina vaginally at bedtime for 2 weeks, then every other night sulfasalazine 500 mg tablet,delayed release (DR/EC) 1 g PO BID Qty: 360 0RF labetalol 100 mg tablet See Rx Instructions .ROUTE .COMPLEX Qty: 180 0RF Dose Instruction: take 1 tablet by mouth twice a day BP GOAL <140/90 Rx Instructions: take 1 tablet by mouth twice a day BP GOAL <140/90 Poly-Iron 150 Forte 150-25-1 mg-mcg-mg capsule See Rx Instructions .ROUTE .COMPLEX Qty: 90 0RF Dose Instruction: take 1 capsule by mouth once daily for ANEMIA Rx Instructions: take 1 capsule by mouth once daily for ANEMIA amlodipine 10 mg tablet 10 mg PO BID Patient Comments: take 1 tablet by mouth daily for hypertension Referrals: Amanda Lockett ARNP [Primary Care Provider] - Stand Alone Forms: Patient Portal/API
[2023-05-17] MEDS: HYDROCODONE/ACET 5/325 TABLET 2 TAB PO (08:41)
== END 2023-05-17 10:58 | disposition home or self-care (01) ==
PROVIDERS: Emergency Provider Emergency Medicine; Family Provider Nurse Practitioner; PCP Nurse Practitioner
DX: S09.90XA Unspecified injury of head, initial encounter (principal); W00.0XXA Fall on same level due to ice and snow, initial encounter
CPT/HCPCS: 70450; 70486; 72125; 99284

== ENCOUNTER → 2023-07-14 09:12 | Outpatient (CLI) | payer OTHER, SELFPAY ==
[2023-07-14 10:21] LABS: Hematocrit 38.8 % (36-46); Hemoglobin 12.9 g/dL (12.0-16.0); Mean Corpuscular HGB Conc 33.3 % (30-36); Mean Corpuscular Hemoglobin 32.2 PG (26-34); Mean Corpuscular Volume 96.8 fL (80-100); Platelet Count 287 X10^3/uL (150-400); Red Cell Distribution Width 14.4 % (11.6-14.8); White Blood Cell Count 3.8 X10^3/uL (4.5-11.0)
[2023-07-14 10:50] LABS: Alanine Aminotransferase 33 IU/L (<35); Albumin 4.4 g/dL (3.5-5.0); Albumin Globulin Ratio 1.3 (1.0-2.8); Alkaline Phosphatase 65 U/L (38-126); Aspartate Aminotransferase 36 IU/L (14-36); BUN Creatinine Ratio 25.4 (6-22); Bilirubin Total 0.5 mg/dL (0.2-1.3); Blood Urea Nitrogen 17 mg/dL (7-17); Carbon Dioxide 32 mmol/L (22-32); Chloride 104 mmol/L (98-107); Cholesterol 214 mg/dL (140-199); Estimated Glomerular Filt Rate > 60 mL/min (>60); Globulin 3.3 g/dL (1.7-4.1); Glucose 101 mg/dL (80-110); HDL Cholesterol 98 mg/dL (40-60); HEMOLYSIS < 15 (0-50); LDL Cholesterol Calculated 98 mg/dL (<100); Potassium 3.8 mmol/L (3.4-5.1); Sodium 142 mmol/L (137-145); Total Protein 7.7 g/dL (6.3-8.2); Triglycerides 89 mg/dL (35-150)
[2023-07-14 11:06] LABS: Free T3, Triiodothyronine Free 3.29 pg/mL (2.77-5.27); Free T4, Direct Thyroxine 1.05 ng/dL (0.78-2.19)
[2023-07-14 11:19] LABS: Thyroid Stimulating Hormone 1.03 uIU/mL (0.47-4.68)
[2023-07-14 11:55] LABS: Creatinine Urine Random 199.1 mg/dL
[2023-07-14 12:00] LABS: Microalbumi Creatinin Ratio Ur 10.5 ug/mg CR (<30); Microalbumin Urine Random 2.1 mg/dL (0-1.6)
== END ==
PROVIDERS: Family Provider Nurse Practitioner; PCP Nurse Practitioner; Referring Provider Nurse Practitioner; Visit Provider Nurse Practitioner
DX: Z00.00 Encounter for general adult medical examination without abnormal findings (principal)
CPT/HCPCS: 36415; 80053; 80061; 82043; 82570; 84439; 84443; 84481; 85027

== ENCOUNTER → 2023-07-31 06:53 | Outpatient (CLI) | payer OTHER, SELFPAY ==
--- NOTE | 2023-07-31 07:10 | DI.ECHO.S_ITS ---
[facility] +---------+ : : [address] : : : : [id number] : : : : Phone: [phone]---------+ Echocardiogram Report + + :Name: ARMANDO CARBALLO Study Date: 07/31/2023 Height: 64 in : :[facility] ReadingLocation: Weight: 245 lb : : Gender: Female BSA: 2.1 m2 : :: 1960 Age: 62 yrs BP: 148/82 mmHg: :Reason For Study: HYPERTENSION : :Ordering Physician: JOHN, : :CORY Performed By: Jenna Almanzar : :Referring: CORY LOPEZ : + + Interpretation Summary The left ventricle is normal in size and wall thickness. The left ventricular ejection fraction is normal. The ejection fraction is estimated to be 60-65%. No significant diastolic dysfunction. The right ventricle is normal in size and function. No significant valvular pathology seen. The IVC is of normal diameter and collapses greater than 50% with a sniff. This suggests a low right atrial pressure of 3 mm Hg. Procedure: A two-dimensional transthoracic echocardiogram with color flow and Doppler was performed. The study quality was technically adequate. There is no prior echocardiogram noted for this patient. The patient was in normal sinus rhythm during the exam. Left Ventricle: The left ventricle is normal in size and wall thickness. There is no thrombus. The ejection fraction is estimated to be 60-65%. The left ventricular ejection fraction is normal. There are no focal wall motion abnormalities. MV E/A: 1.4 Med Peak E' César: 7.1 cm/sec E/E' med: 12.9. Right Ventricle: The right ventricle is normal in size and function. Atria: The left atrium is mildly dilated. Right atrial size is normal. There is no Doppler evidence for an interatrial shunt. Mitral Valve: There is mild mitral annular calcification. The mitral valve leaflets are slightly calcified. There is trace mitral regurgitation. Aortic Valve: The aortic valve is trileaflet. The aortic valve opens well. There is no aortic valve stenosis. No aortic regurgitation is present. Tricuspid Valve: The tricuspid valve is normal in structure and function. There is trace tricuspid regurgitation. The right ventricular systolic pressure is estimated to be at least 30 mmHg based on an estimated right atrial pressure of 3 mm Hg. Pulmonic Valve: The pulmonic valve leaflets are thin and pliable; valve motion is normal. There is no pulmonic valvular regurgitation. Great Vessels: The aortic root is normal size. The dimensions of the ascending aorta are normal. The IVC is of normal diameter and collapses greater than 50% with a sniff. This suggests a low right atrial pressure of 3 mm Hg. Pericardium/ Pleura There is no pericardial effusion. There is no pleural effusion. MMode/2D Measurements & Calculations LVIDd: 4.4 cm LVOT diam: 2.0 cm LVIDs: 2.8 cm Ao root diam: 2.8 cm FS: 36.2 % asc Aorta Diam: 3.1 cm EPSS: 0.52 cm Ao Arch Diam (Prox Trans): 2.2 cm IVSd: 1.1 cm LVPWd: 0.86 cm LV hernandez. diameter/BSA (cm/m^2): 2.0 LV sys. diameter/BSA (cm/m^2): 1.3 LA A2 area: 23.3 cm2 RA long axis: 5.5 cm LA A4 area: 24.8 cm2 RA area: 16.6 cm2 LA length (vol): 6.3 cm RA vol: 43.0 ml LA vol: 78.2 ml RA : 20.2 ml/m2 LA vol index: 36.7 ml/m2 IVC diam: 2.0 cm RVD1 (basal): 3.9 cm RVD2 (mid): 3.2 cm TAPSE: 2.5 cm Doppler Measurements & Calculations Ao V2 max: 168.4 cm/sec LVOT Max César: 120.5 cm/sec Ao V2 mean: 116.0 cm/sec LV V1 max P.8 mmHg Ao max P.3 mmHg LV V1 VTI: 28.9 cm Ao mean P.1 mmHg KAN(I,D): 2.2 cm2 Ao V2 VTI: 40.6 cm KAN(V,D): 2.2 cm2 sev ratio: 0.71 KAN indexed to BSA (cm^2/m^2): 1.0 MV E max césar: 92.0 cm/sec TR max césar: 257.8 cm/sec MV A max césar: 66.5 cm/sec TR max P.6 mmHg MV E/A: 1.4 PA V2 max: 101.1 cm/sec Med Peak E' César: 7.1 cm/sec PA V2 mean: 75.1 cm/sec E/E' med: 12.9 PA mean P.4 mmHg Lat Peak E' César: 8.9 cm/sec GABY pr(Accel): 55.0 mmHg E/E' lat: 10.3 E/e' average: 11.6 MV dec time: 0.25 sec SV(LIYAOT): 88.6 ml Reading Physician:12:20 PM
--- NOTE | 2023-07-31 08:30 | DI.MG.S_ITS ---
BILATERAL DIGITAL SCREENING MAMMOGRAM 3D/2D WITH CAD: 07/31/2023 CLINICAL: Routine screening. Comparison is made to exams dated: 03/25/2022 mammogram, 03/20/2021 mammogram, and 01/08/2020 mammogram - [facility]. There are scattered areas of fibroglandular density in both breasts (category b / 25%-50% glandular tissue). Current study was also evaluated with a Computer Aided Detection (CAD) system. There are benign calcifications in both breasts. No significant masses, calcifications, or other findings are seen in either breast. There has been no significant interval change. IMPRESSION: BENIGN There is no mammographic evidence of malignancy. A 1 year screening mammogram is recommended. Based on the Tyrer Cuzick model (a risk assessment model) the patient's lifetime risk is 9.3% and her 10 year risk is 3.9%. According to the ACR, ACS, and NCCN guidelines, an annual breast MRI exam along with mammogram is recommended if the patient's lifetime risk is 20% or greater. This exam was interpreted at Station ID: [id number]. NOTE: For mammograms, a report in lay terms will be sent to the patient. Approximately 15% of breast malignancies will not be visualized mammographically. In the management of a palpable breast mass, a negative mammogram must not discourage biopsy of a clinically suspicious lesion. Electronically Signed By: Vinod christensen/lauren:07/31/2023 11:20:51 letter sent: Normal Exam ACR BI-RADS Category 2: Benign Finding(s) 3342F
== END ==
LOC: ECHO 06:53
PROVIDERS: Family Provider Nurse Practitioner; PCP Nurse Practitioner; Referring Provider Nurse Practitioner; Visit Provider Nurse Practitioner
DX: Z12.31 Encounter for screening mammogram for malignant neoplasm of breast (principal); R92.323 Mammographic fibroglandular density, bilateral breasts; Z00.00 Encounter for general adult medical examination without abnormal findings; I10 Essential (primary) hypertension; I34.81 Nonrheumatic mitral (valve) annulus calcification
CPT/HCPCS: 77063; 77067; 93306

== ENCOUNTER → 2023-08-13 07:37 | Outpatient (CLI) | payer OTHER, SELFPAY | PROVIDERS: Family Provider Nurse Practitioner; PCP Nurse Practitioner; Referring Provider Nurse Practitioner; Visit Provider Nurse Practitioner | DX: Z00.00 Encounter for general adult medical examination without abnormal findings (principal); I10 Essential (primary) hypertension | CPT/HCPCS: 93005 ==

== ENCOUNTER → 2024-03-17 08:42 | Outpatient (CLI) | payer OTHER, SELFPAY ==
[2024-03-17 10:25] LABS: Add Manual Diff / Slide Review NO; Basophils Absolute Auto 100 /uL (0-100); Basophils Percent Auto 1.2 % (0-2); Eosinophils Absolute Auto 200 /uL (0-450); Hematocrit 39.2 % (36-46); Hemoglobin 12.8 g/dL (12.0-16.0); Lymphocytes Absolute Auto 1600 /uL (1100-4500); Lymphocytes Percent Auto 26.7 % (25-40); Mean Corpuscular HGB Conc 32.6 % (30-36); Mean Corpuscular Hemoglobin 31.8 PG (26-34); Mean Corpuscular Volume 97.6 fL (80-100); Monocytes Absolute Auto 500 /uL (0-900); Monocytes Percent Auto 8.7 % (3-14); Neutrophils Absolute Auto 3500 /uL (1500-7000); Neutrophils Percent Auto 59.4 % (50-75); Platelet Count 315 X10^3/uL (150-400); Red Blood Cell Count 4.01 X10^6/uL (4.0-5.2); Red Cell Distribution Width 14.6 % (11.6-14.8)
[2024-03-17 10:34] LABS: Hemoglobin A1C% w Est Avg Glu 5.5 % (4.0-6.0)
[2024-03-17 11:19] LABS: Alanine Aminotransferase 28 IU/L (<35); Albumin 4.5 g/dL (3.5-5.0); Albumin Globulin Ratio 1.4 (1.0-2.8); Alkaline Phosphatase 81 U/L (38-126); Aspartate Aminotransferase 32 IU/L (14-36); BUN Creatinine Ratio 24.1 (6-22); Bilirubin Total 0.5 mg/dL (0.2-1.3); Blood Urea Nitrogen 19 mg/dL (7-17); Calcium 9.9 mg/dL (8.4-10.2); Carbon Dioxide 25 mmol/L (22-32); Chloride 102 mmol/L (98-107); Cholesterol 223 mg/dL (140-199); Estimated Glomerular Filt Rate > 60 mL/min (>60); Globulin 3.2 g/dL (1.7-4.1); Glucose 106 mg/dL (80-110); HDL Cholesterol 101 mg/dL (40-60); HEMOLYSIS < 15 (0-50); LDL Cholesterol Calculated 103 mg/dL (<100); Potassium 4.4 mmol/L (3.4-5.1); Sodium 139 mmol/L (137-145); Total Protein 7.7 g/dL (6.3-8.2); Triglycerides 95 mg/dL (35-150)
[2024-03-17 11:35] LABS: Free T3, Triiodothyronine Free 3.04 pg/mL (2.77-5.27); Free T4, Direct Thyroxine 0.93 ng/dL (0.78-2.19)
[2024-03-17 11:49] LABS: TSH w/ Reflex to FT4 2.06 uIU/mL (0.47-4.68)
== END ==
PROVIDERS: PCP Student in an Organized Health Care Education/Training Program; Referring Provider Student in an Organized Health Care Education/Training Program; Visit Provider Student in an Organized Health Care Education/Training Program
DX: R73.03 Prediabetes (principal); D50.0 Iron deficiency anemia secondary to blood loss (chronic); E03.9 Hypothyroidism, unspecified; R73.01 Impaired fasting glucose; I10 Essential (primary) hypertension; E78.5 Hyperlipidemia, unspecified
CPT/HCPCS: 36415; 80053; 80061; 83036; 84439; 84443; 84481; 85025

== ENCOUNTER → 2024-08-25 13:53 | Outpatient (CLI) | payer OTHER, SELFPAY ==
--- NOTE | 2024-08-25 13:54 | DI.MG.S_ITS ---
MM screening mammo BI: 08/25/2024. BI-RADS: 2 CLINICAL: 63-year old female for bilateral screening mammogram. Tyrer-Cuzick lifetime risk of 7.5%. No personal or first-degree family history of breast cancer. PRIOR EXAMS 07/31/2023, 03/25/2022, 03/20/2021, 01/08/2020. MAMMOGRAPHY TECHNIQUE: 2D and 3D (tomosynthesis) digital mammographic views obtained, with additional images as needed for full coverage. Current study was also evaluated with a Computer Aided Detection (CAD) system. DENSITY B. There are scattered areas of fibroglandular density. MAMMOGRAPHY FINDINGS Bilateral: Benign-appearing calcifications noted. There are no suspicious masses, calcifications, or other findings in the breast. No significant change from comparison. IMPRESSION: * No evidence of malignancy with benign findings. RECOMMENDATIONS Bilateral * Annual screening mammography. OVERALL ASSESSMENT CATEGORY BI-RADS-2: Benign. [employer] recommends annual screening mammography beginning at age 40 for women with average risk of breast cancer. ELECTRONICALLY SIGNED: Bob Tsai M.D. on 08/25/2024 at 02:50:06 PM PT Interpreting Station ID: [id number]
== END ==
PROVIDERS: PCP Student in an Organized Health Care Education/Training Program; Referring Provider Student in an Organized Health Care Education/Training Program; Visit Provider Student in an Organized Health Care Education/Training Program
DX: Z12.31 Encounter for screening mammogram for malignant neoplasm of breast (principal)
CPT/HCPCS: 77063; 77067